=== PATIENT | female | born 1955 | race Caucasian/White ===

== ENCOUNTER 2023-04-11 09:14 | Outpatient (OUT) | payer MEDICARE, OTHER, SELFPAY ==
[2023-04-11 09:43] LABS: Basophils Absolute Auto 0.1 10^3/uL (0.0-0.1); Basophils Percent Auto 0.9 % (0.2-2.0); Eosinophils Absolute Auto 0.1 10^3/uL (0.0-0.7); Eosinophils Percent Auto 2.6 % (0.9-7.0); Hematocrit 42.4 % (36.0-48.0); Hemoglobin 14.1 g/dL (12.0-16.0); Immature Granulocytes Abs Auto 0.01 10^3/uL (0.00-0.03); Immature Granulocytes Pct Auto 0.2 % (0.0-0.5); Lymphocytes Absolute Auto 1.7 10^3/uL (1.2-3.8); Lymphocytes Percent Auto 31.2 % (20.5-60.0); Mean Corpuscular HGB Conc 33.3 g/dL (29.9-35.2); Mean Corpuscular Hemoglobin 29.6 pg (26.7-34.0); Mean Corpuscular Volume 88.9 fL (81.0-99.0); Mean Platelet Volume 9.2 fL (9.5-13.5); Monocytes Absolute Auto 0.4 10^3/uL (0.3-0.8); Monocytes Percent Auto 7.4 % (1.7-12.0); Neutrophils Absolute Auto 3.1 10^3/uL (1.4-6.5); Neutrophils Percent Auto 57.7 % (43.0-75.0); Platelet Count 212 10^3/uL (150-450); Red Blood Count 4.77 10^6/uL (4.20-5.40); Red Cell Distribution Width 14.2 % (11.0-15.0); White Blood Count 5.4 10^3/uL (4.0-11.0)
[2023-04-11 09:53] LABS: Anion Gap 12.2; BUN Creatinine Ratio 16.7; Calcium 9.9 mg/dL (8.5-10.1); Chloride 108 mmol/L (98-107); Estimated GFR (African America >60 (>=60); Estimated GFR (Non-African Ame 54 (>=60); Glucose 111 mg/dL (74-106); Potassium 4.2 mmol/L (3.5-5.1); Sodium 142 mmol/L (136-145)
== END 2023-04-11 09:15 | disposition home or self-care (01) ==
PROVIDERS: PCP Nurse Practitioner Family; Visit Provider Nurse Practitioner
DX: I48.19 Other persistent atrial fibrillation (principal); I50.33 Acute on chronic diastolic (congestive) heart failure
CPT/HCPCS: 36415; 80048; 85025

== ENCOUNTER 2023-04-24 11:28 | Outpatient (OUT) | payer MEDICARE, OTHER, SELFPAY ==
--- NOTE | 2023-03-28 09:00 | RT_ITS ---
[facility] Test Date: 2023-03-28 Pat Name: Mona Yanez Department: Room: - Gender: Female Slag Expander: Bernard Quintero RRT : 1955 Requested By: [id number] Order Number: [id number] Reading MD: Ludwin Harry Interpretive Statements Pulmonary function testing was completed according to ATS criteria. Findings were considered accurate and reproducible, with exception of DLCO which did not meet ATS standards. Both pre- and post-bronchodilator values utilized for spirometry. No prior studies available for comparison. Spirometry (based on pre-bronchodilator values): -FEV1/FVC: Low normal @ 74% -FEV1: Mildly reduced @ 75% -FVC: Mildly reduced @ 78% -VUD90-20%: Reduced @ 62% -There is no significant bronchodilator response. Lung volumes by plethysmography (based on pre-bronchodilator values): -RV: Normal @ 114% -TLC: Normal @ 108% Diffusion capacity: -DLCO: Normal @ 83 when corrected for Hb 15.3g/dL Flow-volume loop: -Mild obstructive pattern Impressions: -Spirometry trends towards an obstruction pattern. Normal lung volumes and diffusion capacity. Though technically non-diagnostic, the overall study may indicate a mild-moderate obstructive process (e.g. asthma, COPD) obscured by restriction induced by the patient's morbid obesity (stated BMI 45). Clinical correlation required. Electronically Signed On 03-28-2023 13:15:29 EDT by Ludwin Harry
[2023-03-28] MEDS: ALBUTEROL SULFATE 2.5 MG/3 ML VIAL NEB IH (10:01)
== END 2023-04-24 11:29 | disposition home or self-care (01) ==
LOC: CARD 11:28
PROVIDERS: PCP Nurse Practitioner Family
DX: Z79.899 Other long term (current) drug therapy (principal)
CPT/HCPCS: 94060; 94726; 94729

== ENCOUNTER 2023-08-07 08:36 | Outpatient (OUT) | payer MEDICARE, OTHER, SELFPAY ==
[2023-08-07 08:53] LABS: Basophils Absolute Auto 0.1 10^3/uL (0.0-0.1); Basophils Percent Auto 0.9 % (0.2-2.0); Eosinophils Absolute Auto 0.1 10^3/uL (0.0-0.7); Eosinophils Percent Auto 1.9 % (0.9-7.0); Hematocrit 43.3 % (36.0-48.0); Hemoglobin 14.4 g/dL (12.0-16.0); Immature Granulocytes Abs Auto 0.01 10^3/uL (0.00-0.03); Immature Granulocytes Pct Auto 0.2 % (0.0-0.5); Lymphocytes Absolute Auto 1.9 10^3/uL (1.2-3.8); Lymphocytes Percent Auto 33.8 % (20.5-60.0); Mean Corpuscular HGB Conc 33.3 g/dL (29.9-35.2); Mean Corpuscular Hemoglobin 30.4 pg (26.7-34.0); Mean Corpuscular Volume 91.4 fL (81.0-99.0); Mean Platelet Volume 9.4 fL (9.5-13.5); Monocytes Absolute Auto 0.5 10^3/uL (0.3-0.8); Monocytes Percent Auto 8.4 % (1.7-12.0); Neutrophils Absolute Auto 3.2 10^3/uL (1.4-6.5); Neutrophils Percent Auto 54.8 % (43.0-75.0); Platelet Count 180 10^3/uL (150-450); Red Blood Count 4.74 10^6/uL (4.20-5.40); Red Cell Distribution Width 12.4 % (11.0-15.0); White Blood Count 5.7 10^3/uL (4.0-11.0)
[2023-08-07 09:06] LABS: Prothrombin Time 10.6 sec (9.0-11.6)
[2023-08-07 09:20] LABS: Anion Gap 8.3; BUN Creatinine Ratio 16.8; Calcium 9.5 mg/dL (8.5-10.1); Carbon Dioxide 28.9 mmol/L (21.0-32.0); Chloride 107 mmol/L (98-107); Estimated GFR (African America >60 (>=60); Estimated GFR (Non-African Ame 59 (>=60); Glucose 102 mg/dL (74-106); Potassium 4.2 mmol/L (3.5-5.1); Sodium 140 mmol/L (136-145)
== END 2023-08-07 08:37 | disposition home or self-care (01) ==
LOC: LAB 08:40
PROVIDERS: PCP Nurse Practitioner Family; Visit Provider Nurse Practitioner
DX: I50.33 Acute on chronic diastolic (congestive) heart failure (principal); I48.19 Other persistent atrial fibrillation
CPT/HCPCS: 36415; 80048; 85025; 85610

== ENCOUNTER 2023-12-13 08:43 | Outpatient (OUT) | payer MEDICARE, OTHER, SELFPAY ==
--- OUTSIDE RECORDS SUMMARY | 2023-12-13 08:57 | XMS_ITS | CCD ---
Author Name Unknown Address [address] [place] [address] Organization [facility] Care Team Providers Care Cement Car Dumper Name Role Phone LOC CONNIE Admitting Unavailable SHRUTHI, GARCÍA Primary Care Unavailable BARAZI, CONNIE Attending Unavailable SHRUTHI, GARCÍA Attending Unavailable SHRUTHI, GARCÍA Primary Care Unavailable SHRUTHI, GARCÍA Admitting Unavailable REINECK, DR ZAFAR Sánchez Attending Unavailabl e REINECK, DR ZAFAR Sánchez Consulting Unavailabl e REINECK, DR ZAFAR Sánchez Admitting Unavailabl e MISC, DR RICHMOND Primary Care Unavailable Gonzalez, Rolan Consulting Unavailable HOY ., DR FERNANDEZ Attending Unavailable HOY ., DR FERNANDEZ Consulting Unavailable HOY ., DR FERNANDEZ Admitting Unavailable MISC, DR RICHMOND Primary Care Unavailable ZIEBER, DR LIZETT aClle Consulting Unavailable PAY ., DR ANDRES Consulting Unavailable ELIO, YESI Consulting Unavailable SHRUTHI, GARCÍA Primary Care Unavailable BARAZI, CONNIE Attending Unavailable BARAZI, CONNIE Consulting Unavailable BARAZI, CONNIE Admitting Unavailable BARAZI, CONNIE Attending Unavailable BARAZI, CONNIE Attending Unavailable BARAZI, CONNIE Attending Unavailable BARAZI, CONNIE Attending Unavailable BARAZI, CONNIE Attending Unavailable JIL, FAHAD Referring Unavailable JIL, FAHAD Referring Unavailable JIL, FAHAD Admitting Unavailable JIL, FAHAD Attending Unavailable JIL, FAHAD Referring Unavailable JIL, FAHAD Admitting Unavailable JIL, FAHAD Attending Unavailable JIL, FAHAD Referring Unavailable JIL, FAHAD Attending Unavailable JIL, FAHAD Referring Unavailable JIL, FAHAD Referring Unavailable BARAZI, CONNIE Referring Unavailable Problems Problem Classification Problem Date Documented Da te Episodic/Chronic Cardiac dysrhythmias (7 sources) Unspecified atrial fibrillation; Translations: [Paroxysmal atrial fibrillation] Onset: 02-08-2023 Chronic Conditions associated with dizziness or vertigo (8 sources) Dizziness and giddiness; Translations: [Unspecified disorder of vestibular function, unspecified ear] Onset: 02-24-2023 Episodic Congestive heart failure; nonhypertensive (6 sources) Acute on chronic diastolic (congestive) heart failure; Translations: [ACUTE ON CHRONIC DIASTOLIC CHF] Onset: 02-22-2023 Chronic Diabetes mellitus without complication (1 source) Hyperglycemia, unspecified; Translations: [HYPERGLYCEMIA UNSPECIFIED] Onset: 02-13-2023 Episodic Essential hypertension (1 source) Essential (primary) hypertension; Translations: [ESSENTIAL PRIMARY HYPERTENSION] Onset: 02-13-2023 Chronic Other aftercare (1 source) Other long-term (current) drug therapy; Translations: [OTH CUSTODIAL CURRENT DRUG THERAPY] Onset: 02-25-2023 Episodic Other circulatory disease (2 sources) Personal history of other diseases of the circulatory system; Translations: [Personal history of other diseases of the circulatory system] Onset: 08-14-2023 Episodic Other lower respiratory disease (1 source) Shortness of breath; Translations: [SHORTNESS OF BREATH] Onset: 02-13-2023 Episodic Other nutritional; endocrine; and metabolic disorders (1 source) Hypocalcemia; Translations: [HYPOCALCEMIA] Onset: 02-13-2023 Chronic Other screening for suspected conditions (not mental disorders or infectious disease) (1 source) Other specified abnormal findings of blood chemistry; Translations: [OT SPEC ABNORMAL FINDINGS BLD CHEM] Onset: 02-13-2023 Episodic Pulmonary heart disease (1 source) Other pulmonary embolism without acute cor pulmonale; Translations: [OT PULM EMBO W/O AC COR PULMONALE] Onset: 02-13-2023 Episodic Residual codes; unclassified (2 sources) Other specified postprocedural states; Translations: [Other specified postprocedural states] Onset: 08-14-2023 Episodic Unclassified (3 sources) Other persistent atrial fibrillation; Translations: [OTHR PERSISTENT ATRIAL FIBRILLATION] Onset: 03-04-2023 Results Test Name Value Interpretation Reference Range Facility Follow-Upon 10-29-2023 Follow-Up [id number] Mona Yanez 1955 F Date Provider Department Center 10/29/2023 Sree-CONNIE MONTERROSO [facility] No family history on file Level of Service:79061 [place] OFFICE/OUTPATIENT ESTABLISHED MOD MDM 30 MIN [facility] Telephoneon 08-26-2023 Telephone [id number] Mona Yanez 1955 F Date Provider Department Center 08/26/2023 TYRONE MARSHALL [facility] No family history on file [facility] HPon 08-14-2023 HP - Attestation signed by Fahad García MD at 08/14/2023 9:02 AM By using the attestations below, the signing clinician agrees that I have read and verify that the documentation has been personally reviewed by me and ensure that the documentation accurately reflects the encounter. GC: I personally saw this patient on the day of the encounter, performed the aranda portion(s) of the service and participated in the management and confirm the resident's documentation. Please note there may be an additional personal documentation from me. Afib ablation would require placement of multiple catheters in the heart under moderate sedation which will include diagnostic catheters, ICE catheters and ablation catheters. The risk of the procedures can be described as minor and major minor complications being discomfort in the groin area, bleeding, infection and vascular complications at this fistula formation, pseudoaneurysm, nerve injury. Major complications would include catheter induced cardiac perforation leading to tamponade/ pericardial effusion which may or may not require surgical intervention. Other complications are phrenic nerve injury leading to paralysis, thromboembolism including pulmonary and systemic event leading to stroke or endorgan injury or . There could be a possibility of catheter induced valve entrapment which may require surgical intervention and valve replacement. Given that these procedures are performed under x-ray, they could be acute or long-term side effects from radiation. Gven the comorbidities, the likelihood of attaining sinus rhythm would be ~75% and reiterated the importance of weight loss and an exercise regimen as well as treatment of sleep apnea which would be beneficial in long-term maintenance of sinus rhythm based on data from LEGACY and CARDIOFIT trials. Overall the risk of these complications ranged anywhere from 1-5%. Patient verbalized understanding and have agreed to proceed with the procedure. History Of Present Illness Reason for visit: afib, s/p DCCV unsuccessful on amiodarone , afib ablation hp and consent 08/02/23: Patient here for afib ablation HP and consent She has failed trialing AAD with DCCV and still remains in AF She is symptomatic of it with complaints of fatigue, SOB, LE edema PMH: HTN, HFpEF, afib 06/04/23 Pt feels better after increasing BB dose and rate is controlled. Holter reveals episodes of VR in 120s with activity. She is on AC. Holter from 05/22/2023 to 05/24/2023 for evaluating the ventricular rate showed Ventricular rate was 163 bpm as noted on 05/23/2023 at 8:10 AM the minimum recorded was 52 beats a minute with an average rate of 88 bpm she was noted to be in Chronic atrial fibrillation throughout this monitoring. during daytime her ventricular rate was noted to range between 75 to-125bpm for the most part. HPI: Mona Yanez is a 68 y.o. year old with past medical history of A-fib with history of cardioversion, hypertension. She used to be seen in [place] where she used to live for [employer] had a cardioversion in the past about 3 years ago and has not had issues since. She was taken off blood thinners at the time and was not on any antiarrhythmic medication. She was recently seen in [place] ER 02/08/2023 with symptoms of A-fib -she had felt SOB and felt like heart was racing and was concerned she was in A-fib. No cardioversion was attempted due to not being on blood thinners. [place] started her on Cardizem and Eliquis , And hydralazine for hypertension. In the ER visit note she had noted swelling in her arms and legs which have resolved. she had a CT of her chest she was noted to have, Cardiomegaly with biatrial dilatation, acute bilateral pulmonary emboliwith left worse than right, with overall clot burden being considered large, moderate cardiomegaly with significant biatrial dilatation and RV dysfunction and dilatation. She had no echo performed to evaluate for right heart strain. She is fairly asymptomatic but when she is trying to exercise her work-up was taking twice as long. Otherwise she is able to go about her day without concern for shortness of breath, palpitations. She is s/p DCCV on 04/17/23 but failed to convert. Dyspnea continues to improve in regards to PE but she does got dyspneic when she feels her HR elevate she had echocardiogram done which showed function and chamber size, moderate concentric LVH, moderate to severe LA dilatation, mild dilatation of RA and RV, RVSP 29, moderate mitral regurgitation It was recommended post cardioversion to assess for RVR with holter and discussed with patient, she feels her rate heart racing on exertion when she exercises and does get MONREAL / fatigue and opted no holter. she denies chest pain, worseni (more content not included)... [facility] NURSNOTEon 08-14-2023 NURSNOTE Discharge instructions reviewed with patient daughter at bedside. All questions answered at this time Melida Hanna PRODUCT FINISHER [facility] NURSNOTE Prescriptions given to family member to fill at local pharmacy Melida Hanna PRODUCT FINISHER [facility] NURSNOTE EKG at bedside Melida Hanna PRODUCT FINISHER [facility] POCT GLUCOSE METER UNSOLICIT ED RESULTSon 08-14-2023 Glucose [Mass/Vol] 110 mg/dL High 70-105 [facility] Comment on above: Order Comment: Waive d Testing in the ED is performed under the ED CLIA certificate #[id number]. Result Comment: ngro edward Performed By: #### L [id number] ####[facility] (BEAKER)[address] [facility] [place] [address] PROTIME-INRon 08-14-2023 INR IN PPP BY COAGULATION ASSAY 0.99 Normal 0.90-1.10 [facility] Comment on above: Result Comment: ACCC P RECOMMENDED INR FOR WARFARIN THERAPY CONDITION INR PROPHYLAXIS OF VENOUS THROMBOSIS 2-3 (HIGH-RISK SURGERY) TREATMENT OF VENOUS THROMBOSIS 2-3 TREATMENT OF PULMONARY EMBOLISM 2-3 PREVENTION OF SYSTEMIC EMBOLISM: 2-3 ACUTE MYOCARDIAL INFARCTION TISSUE HEART VALVES VALVULAR HEART DISEASE ATRIAL FIBRILLATION RECURRENT SYSTEMIC EMBOLISM MECHANICAL HEART VALVE 2.5-3.5 FROM: ORAL ANTICOAGULANTS. MECHANISM OF ACTION, CLINICAL EFFECTIVENESS, AND OPTIMAL THERAPEUTIC RANGE. CHEST 1995;108:231S-246S. Performed By: #### L [id number] ####[facility] LAB (BEAKER)[address] [place] [address] PROTHROMBIN TIME (PT) IN PPP BY COAGULATION ASSAY 13.1 Seconds Normal 12.3-14.8 [facility] Comment on above: Performed By: #### L [id number] ####[facility] LAB (BEAKER)[address] [place] [address] [id number] 08-05-2023 [id number] ARRIVAL TIME GIVEN 0700 HOLD ELIQUIS X 48 HRS STOP 08/12 MEDICATIONS TO TAKE DAY OF SURGERY WITH SIP OF WATER METOPROLOL PT AGREES TO HAVE LABS DRAWN AT [facility] ORDERS FAXED IF YOU ARE GOING HOME AFTER YOUR SURGERY OR PROCEDURE, FOR YOUR SAFETY, YOUR SURGERY WILL BE CANCELLED IF BOTH OF THE FOLLOWING ARE NOT AVAILABLE: An adult entry level truck driver over the age of 18, that can receive information about your care after surgery, and drive you home. A responsible adult to stay with you for 24 hours in case of an emergency. Can be same as above. The highest risk of complications is within the first 24 hours after sedation/anesthesia. Nothing to eat or drink after midnight the night before surgery. This includes gum, candy, mints, and lozenges. No alcohol, marijuana, or tobacco products including vaping for 24 hours. Please brush your teeth; don't swallow the toothpaste or water. If you use dentures, wear them but do not use paste. Please leave any other removable dental hardware at home. Do not put in contact lenses. Do not wear perfume, make-up, nail upper sorbian, or lotions on the day of your surgery or procedure. Follow skin-prep/wipe instructions as below if required. Bring with you: *Insurance card *Photo ID *Medication list *Co-pay for visit/prescriptions If applicable: *Rescue inhalers *Green bracelet from lab *CPAP or BiPAP machine, if staying overnight *Any braces, splints, or equipment ordered preoperatively *Remote controls for implanted devices Leave at home: *Purse/Wallet/Florez- unless needed for co-pay *Cell phone (can leave with family/friend or place in locker if needed) *Jewelry (including piercings and wedding bands) *If not possible, ask the person who is waiting with you to keep them Children under the age of 12 will not be allowed into patient care areas. We will call you between 3pm and 4pm the day before your surgery to give you an arrival time. If you do not receive this call, have any questions, or need to make any changes, please call [phone]. Notify your surgeon if you develop any illness such as a cold, cough, fever, sore throat or vomiting between now and your surgery. Thank you for entrusting us with your care. [facility] Surgical Services Team [facility] Office Visiton 08-02-2023 Follow-up visit [id number] Mona Yanez 1955 F Date Provider Department Center 08/02/2023 CONNIE DOYLE JESUS [place] [facility] No family history on file Level of Service:56793 [place] OFFICE/OUTPATIENT ESTABLISHED HIGH MDM 40-54 MIN [facility] Orders Onlyon 07-05-2023 Orders Only [id number] Mona Yanez 1955 F Date Provider Department [place] 07/05/2023 CONNIE DOYLE [facility] No family history on file [facility] Orders Onlyon 07-03-2023 Orders Only [id number] Mona Yanez 1955 Provider Department [place] 07/03/2023 [id number]-EOBOJAS [facility] No family history on file [facility] Telemedicineon 2023 Telemedicine [id number] Mona Yanez 1955 Provider Department [place] 2023 Inna-FAHAD GARCÍA CARD [facility] No family history on file Level of Service:22260 [place] PHYS/QHP TELEPHONE EVALUATION 21-30 MIN [facility] Office Visiton 05-22-2023 Follow-up visit [id number] Mona Yanez 1955 [facility] Department [place] 05/22/2023 CONNIE DOYLE CARD [facility] No family history on file Level of Service:23505 [place] OFFICE/OUTPATIENT ESTABLISHED MOD MDM 30-39 MIN Reason for Visit and Comments: Follow-up [[id number]] [facility] Orders Onlyon 05-22-2023 Orders Only [id number] Mona Yanez 1955 Provider Department [place] 05/22/2023 CARLEY DIAS CARD [facility] No family history on file [facility] ANEDonald 04-17-2023 ANES - Attestation signed by Fahad García MD at 04/24/2023 9:13 AM By using the attestations below, the signing clinician agrees that I have read and verify that the documentation has been personally reviewed by me and ensure that the documentation accurately reflects the encounter. GC: I personally saw this patient on the day of the encounter, performed the aranda portion(s) of the service and participated in the management and confirm the resident's documentation. Please note there may be an additional personal documentation from me. Patient: Mona Yanez Procedure Information Date/Time: 04/17/23 1340 Procedure: Cardioversion - BECCA with DCCV Location: [facility] STEAM TRAP MAN HOLDING ROOM / [facility] (Cath) Providers: Fahad García MD Clinical information reviewed: Allergies Meds OB Status Physical Exam Airway Mallampati: II TM distance: >3 FB Neck ROM: full Cardiovascular Rhythm: irregular (-) murmur Dental Pulmonary Abdominal Anesthesia Plan other (Conscious sedation. ) Additional Equipment Requests [facility] HPon 04-17-2023 - Attestation signed by Fahad García MD at 04/24/2023 9:14 AM By using the attestations below, the signing clinician agrees that I have read and verify that the documentation has been personally reviewed by me and ensure that the documentation accurately reflects the encounter. GC: I personally saw this patient on the day of the encounter, performed the aranda portion(s) of the service and participated in the management and confirm the resident's documentation. Please note there may be an additional personal documentation from me. History Of Present Illness Mona Yanez is a 67 y.o. female presenting for cardioversion. past medical history of A-fib with history of cardioversion, hypertension. She used to be seen in [place] where she used to live for A-fib had a cardioversion in the past about 3 years ago and has not had issues since. She was taken off blood thinners at the time and was not on any antiarrhythmic medication. She was recently seen in [place] ER 02/08/2023 with symptoms of A-fib -she had felt SOB and felt like heart was racing and was concerned she was in A-fib. No cardioversion was attempted due to not being on blood thinners. [place] started her on Cardizem and Eliquis , hydralazine for hypertension. In the ER visit note she had noted swelling in her arms and legs which have resolved. she had a CT of her chest she was noted to have, Cardiomegaly with biatrial dilatation, acute bilateral pulmonary emboli with left worse than right, with overall clot burden being considered large, moderate cardiomegaly with significant biatrial dilatation and RV dysfunction and dilatation. She had no echo performed to evaluate for right heart strain. Past Medical History She has a past medical history of Abnormal ECG and Hypertension. Surgical History She has no past surgical history on file. Social History She reports that she has never smoked. She has never used smokeless tobacco. No history on file for alcohol use and drug use. Allergies Patient has no known allergies. Medications Medications Prior to Admission Medication Sig Dispense Refill Last Dose amiodarone (Pacerone) 200 mg tablet Take 1 tablet (200 mg) by mouth in the morning. Do not start before March 20, 2023. 30 tablet 5 04/17/2023 dilTIAZem CD (Cardizem CD) 300 mg 24 hr capsule Take 300 mg by mouth in the morning. 04/17/2023 Eliquis 5 mg tablet Take 1 tablet (5 mg) by mouth in the morning and at bedtime. 180 tablet 3 04/17/2023 furosemide (Lasix) 20 mg tablet Take 1 tablet (20 mg) by mouth in the morning. (Patient taking differently: Take 20 mg by mouth in the morning and at bedtime.) 30 tablet 11 04/16/2023 hydrALAZINE (Apresoline) 50 mg tablet Take 50 mg by mouth in the morning and at bedtime. 04/17/2023 lisinopril 40 mg tablet Take 40 mg by mouth in the morning. 04/17/2023 amiodarone (Pacerone) 200 mg tablet Take 2 tablets (400 mg) by mouth in the morning and at bedtime for 14 days, THEN 1 tablet (200 mg) in the morning for 21 days. 77 tablet 0 Review of Systems Constitutional: Negative for activity change. Respiratory: Negative for shortness of breath. Cardiovascular: Positive for leg swelling. Negative for chest pain and palpitations. Physical Exam Cardiovascular: Rate and Rhythm: Normal rate. Rhythm irregular. Pulses: Normal pulses. Heart sounds: Normal heart sounds. Musculoskeletal: Cervical back: Normal range of motion. Neurological: General: No focal deficit present. Mental Status: She is alert. Last Recorded Vitals There were no vitals taken for this visit. Assessment/Plan Persistent atrial fibrillation - [id number] 5 for age, gender, hypertension, PE - continue Eliquis 5 mg twice daily - continue Cardizem 300 mg daily - will proceed with cardioversion. She has been on eliquis for 2 months. chronic heart failure with preserved ejection fraction - EF normal - continue GDMT: Lisinopril 40 mg daily, Lasix 20 mg daily. History of Multiple subsegmental pulmonary emboli continue Eliquis 5 mg twice daily [facility] NURSNOTEon 04-17-2023 NURSNOTE RN educated pt on d/ c instructions. RN encouraged pt to voice any questions or concerns. Pt verbalizes no questions or concerns at this time. Pt was wheeled off of unit with all of belongings. [facility] ECHOCARDIO M/2D COMPLETEon 0 03-05-2023 ECHOCARDIO M/2D COMPLETE Patient: MONA YANEZ Exam Date: 03/05/2023 : 1955 Gender:F Ordering : CONNIE MONTERROSO Admission #: [id number] Family : Order #: [id number] CLICK HERE TO VIEW EXAM ECHOCARDIOGRAM REPORT PROCEDURE: CARDIO PULMONARY ECHOCARDIO M/2D COMP INDICATIONS: Acute on chronic CHF, Persistent Afib COMPARISON: None. DESCRIPTION: COMPLETE ECHOCARDIOGRAM Real-time transthoracic echocardiography with 2D, M-mode, spectral and color flow Doppler performed. QUALITY: Technical quality was good. LEFT VENTRICLE: Normal chamber size. Moderate concentric left ventricular hypertrophy. Systolic function is at the lower limits of normal. LV EF: Lower limits of normal left ventricular ejection fraction, (50-55%). DIASTOLIC: Not adequately assessed due to heart rhythm. ATRIAL SEPTUM: LEFT ATRIUM: Moderate to severe dilatation. RIGHT ATRIUM: Moderate dilatation. RIGHT VENTRICLE: Mild dilatation. Normal right ventricular systolic function. TRICUSPID VALVE: Normal mobility and thickness. No stenosis with trivial regurgitation. No evidence of pulmonary hypertension. RVSP 29 mmHg MITRAL VALVE: Normal mobility and thickness. No evidence of mitral valve stenosis. There is no mitral annular calcification. Moderate mitral regurgitation. AORTIC VALVE: Normal trileaflet appearance. No visible sclerosis. Normal leaflet mobility. No evidence of aortic valve stenosis. No aortic regurgitation. AORTIC ROOT: Normal diameter and appearance. PULMONIC VALVE: Normal thickness and mobility. No stenosis. Trivial regurgitation. PERICARDIUM: No evidence of pericardial effusion. IVC: Collapses with inspirations. Normal size. PLEURA: CONCLUSION: 1. Moderate concentric left ventricular hypertrophy with low normal systolic function. LVEF is 50 to 55%. 2. Moderate mitral regurgitation. 3. Moderate to severe left atrial dilatation. 4. Normal right-sided pressures. Adult Echocardiography Procedure Report Left Ventricle Left Atrium LA Volume Index (2D A2C): 91.80 ml, 91.80 ml Mitral Valve Right Ventricle Aorta Aortic Valve AoV Area (Peak Aniceto): 1.58 cm2, 1.58 cm2 AoV Area (VTI): 1.64 cm2, 1.64 cm2 Tricuspid Valve Pulmonic Valve Peak Velocity: 0.73 m/s, 0.82 m/s Peak Gradient: 2.41 mm[Hg] Right Atrium Dictated by: Asif Connelly M.D. on 03/05/2023 at 17:38 Approved by: Asif Connelly M.D. on 03/05/2023 at 17:41 [facility] Office Visiton 03-05-2023 Follow-up visit [id number] Mona Yanez 1955 F Date Provider Department Center 03/05/2023 1596-CONNIE MONTERROSO [facility] No family history on file Level of Service:05854 [place] OFFICE/OUTPATIENT ESTABLISHED MOD MDM 30-39 MIN Reason for Visit and Comments: Atrial Fibrillation [80] Congestive Heart Failure [127] [facility] PROF CHEM 8 (BAS METB)on Anion gap [Moles/Vol] 12.2 mmol/L [facility] Comment on above: Performed By: #### D DIM, PT, PTT #### [facility] [address] [address] [address] Balwinder Ramirez Calcium [Mass/Vol] 10.6 mg/dL Critically high 8.5-10.1 [facility] Comment on above: Performed By: #### D DIM, PT, PTT #### [facility] [address] [address] [address] Balwinder Ramirez Chloride [Moles/Vol] 107 mmol/L Normal 98-107 [facility] Comment on above: Performed By: #### D DIM, PT, PTT #### [facility] [address] [address] [address] Balwinder Ramirez CO2 [Moles/Vol] 28.4 mmol/L Normal 21.0-32.0 [facility] Comment on above: Performed By: #### D DIM, PT, PTT #### [facility] [address] [address] [address] Balwinder Ramirez Creatinine [Mass/Vol] 1.06 mg/dL Critically high 0.55-1.02 [facility] Comment on above: Performed By: #### D DIM, PT, PTT #### [facility] [address] [address] [address] Balwinder Ramirez EGFR-AF YEMENI >60 Normal >=60 [facility] Comment on above: Performed By: #### D DIM, PT, PTT #### [facility] [address] [address] [address] Balwinder Ramirez EGFR-NON AF YEMENI 52 mL/min/1.73m2 Critically low >=60 [facility] Comment on above: Performed By: #### D DIM, PT, PTT #### [facility] [address] [address] [address] Balwinder Ramirez Glucose [Mass/Vol] 115 mg/dL Critically high 74-106 [facility] Comment on above: Performed By: #### D DIM, PT, PTT #### [facility] [address] [address] [address] Balwinder Ramirez Potassium [Moles/Vol] 4.6 mmol/L Normal 3.5-5.1 [facility] Comment on above: Performed By: #### D DIM, PT, PTT #### [facility] [address] [place] [address] Dr. Balwinder Ramirez Sodium [Moles/Vol] 143 mmol/L Normal 136-145 [facility] Comment on above: Performed By: #### D DIM, PT, PTT #### [facility] [address] [place] [address] Dr. Balwinder Ramirez Urea nitrogen [Mass/Vol] 18.0 mg/dL Normal 7.0-18.0 [facility] Comment on above: Performed By: #### D DIM, PT, PTT #### [facility] [address] [place] [address] Dr. Balwinder Ramirez Urea nitrogen/Creatinine [Mass ratio] 17.0 mg/mg Normal [facility] Comment on above: Performed By: #### D DIM, PT, PTT #### [facility] [address] [place] [address] HEAD WO CONon 02-24-2023 CT HEAD WO CON TITLE: CT HEAD WO CON COMPARISON: None. CLINICAL HISTORY: Headache. Dizziness. Nausea. Vomiting TECHNIQUE: 3 mm axial images without contrast. Automated exposure control was utilized. Dose reduction techniques were achieved by using automated exposure control and/or adjustment of mA and/or kV according to patient size and/or use of iterative reconstruction technique. FINDINGS: There is no mass, mass effect, parenchymal hemorrhage, nor subarachnoid hemorrhage. The extra-axial and extracranial structures appear normal. The CSF spaces are unremarkable. The skeletal structures are intact. IMPRESSION: NO ACUTE INTRACRANIAL FINDINGS BY CT HEAD WITHOUT CONTRAST Electronically authenticated by: ROLAN GONZALEZ Date: 2023-02-24 13:22 Normal [facility] Office Visiton 02-22-2023 Follow-up visit [id number] Mona Yanez 1955 F Date Provider Department Center 02/22/2023 CONNIE DOYLE CARD [facility] No family history on file Level of Service:31948 [place] OFFICE/OUTPATIENT NEW MODERATE MDM 45-59 MINUTES Reason for Visit and Comments: Atrial Fibrillation [80] Establish Care [42] Normal [facility] CBC AUTO DIFFon 02-09-2023 BASO # 0.1 103/ul Normal 0.0-0.1 [facility] Comment on above: Performed By: #### D DIM, PT, PTT #### [facility] [address] [place] [address] Dr. Balwinder Ramirez Basophils/100 WBC (Bld) 0.6 % Normal 0.2-2.0 [facility] Comment on above: Performed By: #### D DIM, PT, PTT #### [facility] [address] [place] [address] Dr. Balwinder Ramirez EO # 0.1 103/ul Normal 0.0-0.7 [facility] Comment on above: Performed By: #### D DIM, PT, PTT #### [facility] [address] [address] [address] Balwinder Ramirez Eosinophils/100 WBC (Bld) 1.2 % Normal 0.9-7.0 [facility] Comment on above: Performed By: #### D DIM, PT, PTT #### [facility] [address] [place] [address] Dr. Balwinder Ramirez Erythrocyte distribution width (RBC) [Ratio] 13.8 % Normal 11.0-15.0 [facility] Comment on above: Performed By: #### D DIM, PT, PTT #### [facility] [address] [place] [address] Dr. Balwinder Ramirez Hematocrit (Bld) [Volume fraction] 46.6 % Normal 36.0-48.0 [facility] Comment on above: Performed By: #### D DIM, PT, PTT #### [facility] [address] [place] [address] Dr. Balwinder Ramirez Hemoglobin (Bld) [Mass/Vol] 15.3 g/dL Normal 12.0-16.0 [facility] Comment on above: Performed By: #### D DIM, PT, PTT #### [facility] [address] [address] [address] Balwinder Ramirez IG # 0.03 10e3/ul Normal 0.00-0.03 [facility] Comment on above: Performed By: #### D DIM, PT, PTT #### [facility] [address] [address] [address] Balwinder Ramirez IG % 0.3 % Normal 0.0-0.5 [facility] Comment on above: Performed By: #### D DIM, PT, PTT #### [facility] [address] [address] [address] Balwinder Ramirez LYMPH # 1.9 103/ul Normal 1.2-3.8 [facility] Comment on above: Performed By: #### D DIM, PT, PTT #### [facility] [address] [address] [address] Balwinder Ramirez Lymphocytes/100 WBC (Bld) 18.0 % Critically low 20.5-60.0 [facility] Comment on above: Performed By: #### D DIM, PT, PTT #### [facility] [address] [place] [address] Dr. Balwinder Ramirez MANUAL DIFF REQ NO Normal [facility] Comment on above: Performed By: #### D DIM, PT, PTT #### [facility] [address] [address] [address] Balwinder Ramirez MCH (RBC) [Entitic mass] 28.7 pg Normal 26.7-34.0 [facility] Comment on above: Performed By: #### D DIM, PT, PTT #### [facility] [address] [address] [address] Balwinder Ramirez MCHC (RBC) [Mass/Vol] 32.8 g/dL Normal 29.9-35.2 [facility] Comment on above: Performed By: #### D DIM, PT, PTT #### [facility] [address] [place] [address] Dr. Balwinder Ramirez MCV (RBC) [Entitic vol] 87.3 fL Normal 81.0-99.0 [facility] Comment on above: Performed By: #### D DIM, PT, PTT #### [facility] [address] [place] [address] Dr. Balwinder Ramirez MONO # 0.8 103/ul Normal 0.3-0.8 [facility] Comment on above: Performed By: #### D DIM, PT, PTT #### [facility] [address] [place] [address] Dr. Balwinder Ramirez Monocytes/100 WBC (Bld) 7.5 % Normal 1.7-12.0 [facility] Comment on above: Performed By: #### D DIM, PT, PTT #### [facility] [address] [place] [address] Dr. Balwinder Ramirez NEUT # 7.8 103/ul Critically high 1.4-6.5 [facility] Comment on above: Performed By: #### D DIM, PT, PTT #### [facility] [address] [place] [address] Dr. Balwinder Ramirez Neutrophils/100 WBC (Bld) 72.4 % Normal 43.0-75.0 [facility] Comment on above: Performed By: #### D DIM, PT, PTT #### [facility] [address] [place] [address] Dr. Balwinder Ramirez Platelet mean volume (Bld) [Entitic vol] 9.6 fL Normal 9.5-13.5 [facility] Comment on above: Performed By: #### D DIM, PT, PTT #### [facility] [address] [place] [address] Dr. Balwinder Ramirez PLT 158 103/ul Normal 150-450 [facility] Comment on above: Performed By: #### D DIM, PT, PTT #### [facility] [address] [place] [address] Dr. Balwinder Ramirez RBC 5.34 106/ul Normal 4.20-5.40 [facility] Comment on above: Performed By: #### D DIM, PT, PTT #### [facility] [address] [place], [place] [id number] Dr. Balwinder Ramirez WBC 10.8 103/ul Normal 4.0-11.0 [facility] Comment on above: Performed By: #### D DIM, PT, PTT #### [facility] [address] [place] [address] Dr. Balwinder Ramirez PROF 14(COMP METB)on 023 Albumin [Mass/Vol] 3.5 g/dL Normal 3.4-5.0 [facility] Comment on above: Performed By: #### D DIM, PT, PTT #### [facility] [address] [place] [address] Dr. Balwinder Ramirez Albumin/Globulin [Mass ratio] 1.2 {ratio} Normal [facility] Comment on above: Performed By: #### D DIM, PT, PTT #### [facility] [address] [place] [address] Dr. Balwinder Ramirez ALP [Catalytic activity/Vol] 117 U/L Critically high 46-116 [facility] Comment on above: Performed By: #### D DIM, PT, PTT #### [facility] [address] [place] [address] Dr. Balwinder Ramirez ALT [Catalytic activity/Vol] 19 U/L Normal 14-59 [facility] Comment on above: Performed By: #### D DIM, PT, PTT #### [facility] [address] [place] [address] Dr. Balwinder Ramirez Anion gap [Moles/Vol] 13.0 mmol/L Normal [facility] Comment on above: Performed By: #### D DIM, PT, PTT #### [facility] [address] [place] [address] Dr. Balwinder Ramirez AST [Catalytic activity/Vol] 12 U/L Critically low 15-37 [facility] Comment on above: Performed By: #### D DIM, PT, PTT #### [facility] [address] [place] [address] Dr. Balwinder Ramirez Bilirubin [Mass/Vol] 0.9 mg/dL Normal 0.2-1.0 [facility] Comment on above: Performed By: #### D DIM, PT, PTT #### [facility] [address] [address] [address] Balwinder Ramirez Calcium [Mass/Vol] 9.5 mg/dL Normal 8.5-10.1 [facility] Comment on above: Performed By: #### D DIM, PT, PTT #### [facility] [address] [address] [address] Balwinder Ramirez Chloride [Moles/Vol] 108 mmol/L Critically high 98-107 [facility] Comment on above: Performed By: #### D DIM, PT, PTT #### [facility] [address] [place] [address] Dr. Balwinder Ramirez CO2 [Moles/Vol] 23.9 mmol/L Normal 21.0-32.0 [facility] Comment on above: Performed By: #### D DIM, PT, PTT #### [facility] [address] [place] [address] Dr. Balwinder Ramirez Creatinine [Mass/Vol] 0.76 mg/dL Normal 0.55-1.02 [facility] Comment on above: Performed By: #### D DIM, PT, PTT #### [facility] [address] [place] [address] Dr. Balwinder Ramirez EGFR-AF YEMENI >60 Normal >=60 [facility] Comment on above: Performed By: #### D DIM, PT, PTT #### [facility] [address] [place] [address] Dr. Balwinder Ramirez EGFR-NON AF YEMENI >60 Normal >=60 [facility] Comment on above: Performed By: #### D DIM, PT, PTT #### [facility] [address] [place] [address] Dr. Balwinder Ramirez Globulin (S) [Mass/Vol] 2.9 g/dL Normal [facility] Comment on above: Performed By: #### D DIM, PT, PTT #### [facility] [address] [place] [address] Dr. Balwinder Ramirez Glucose [Mass/Vol] 128 mg/dL Critically high 74-106 [facility] Comment on above: Performed By: #### D DIM, PT, PTT #### [facility] [address] [place] [address] Dr. Balwinder Ramirez Potassium [Moles/Vol] 3.9 mmol/L Normal 3.5-5.1 [facility] Comment on above: Performed By: #### D DIM, PT, PTT #### [facility] [address] [place] [address] Dr. Balwinder Ramirez Protein [Mass/Vol] 6.4 g/dL Normal 6.4-8.2 [facility] Comment on above: Performed By: #### D DIM, PT, PTT #### [facility] [address] [place] [address] Dr. Balwinder Ramirez Sodium [Moles/Vol] 141 mmol/L Normal 136-145 [facility] Comment on above: Performed By: #### D DIM, PT, PTT #### [facility] [address] [place] [address] Dr. Balwinder Ramirez Urea nitrogen [Mass/Vol] 16.0 mg/dL Normal 7.0-18.0 [facility] Comment on above: Performed By: #### D DIM, PT, PTT #### [facility] [address] [place] [address] Dr. Balwinder Ramirez Urea nitrogen/Creatinine [Mass ratio] 21.1 mg/mg Normal [facility] Comment on above: Performed By: #### D DIM, PT, PTT #### [facility] [address] [place] [address] Dr. Balwinder Ramirez BNPon 02-08-2023 Natriuretic peptide B (Bld) [Mass/Vol] 637.0 pg/mL Normal <=900.0 [facility] Comment on above: Performed By: #### L IPA, TSH, CK, CMP, BNP #### [facility] [address] [place] [address] Dr. Balwinder Ramirez CBC AUTO DIFFon 02-08-2023 BASO # 0.1 103/ul Normal 0.0-0.1 [facility] Comment on above: Performed By: #### D DIM, PT, PTT #### [facility] [address] [place] [address] Dr. Balwinder Ramirez Basophils/100 WBC (Bld) 0.7 % Normal 0.2-2.0 [facility] Comment on above: Performed By: #### D DIM, PT, PTT #### [facility] [address] [place] [address] Dr. Balwinder Ramirez EO # 0.2 103/ul Normal 0.0-0.7 [facility] Comment on above: Performed By: #### D DIM, PT, PTT #### [facility] [address] [place] [address] Dr. Balwinder Ramirez Eosinophils/100 WBC (Bld) 2.1 % Normal 0.9-7.0 [facility] Comment on above: Performed By: #### D DIM, PT, PTT #### [facility] [address] [place] [address] Dr. Balwinder Ramirez Erythrocyte distribution width (RBC) [Ratio] 13.8 % Normal 11.0-15.0 [facility] Comment on above: Performed By: #### D DIM, PT, PTT #### [facility] [address] [place] [address] Dr. Balwinder Ramirez Hematocrit (Bld) [Volume fraction] 47.0 % Normal 36.0-48.0 [facility] Comment on above: Performed By: #### D DIM, PT, PTT #### [facility] [address] [place] [address] Dr. Balwinder Ramirez Hemoglobin (Bld) [Mass/Vol] 15.5 g/dL Normal 12.0-16.0 [facility] Comment on above: Performed By: #### D DIM, PT, PTT #### [facility] [address] [place] [address] Dr. Balwinder Ramirez IG # 0.02 10e3/ul Normal 0.00-0.03 [facility] Comment on above: Performed By: #### D DIM, PT, PTT #### [facility] [address] [place] [address] Dr. Balwinder Ramirez IG % 0.2 % Normal 0.0-0.5 [facility] Comment on above: Performed By: #### D DIM, PT, PTT #### [facility] [address] [place] [address] Dr. Balwinder Ramirez LYMPH # 2.4 103/ul Normal 1.2-3.8 [facility] Comment on above: Performed By: #### D DIM, PT, PTT #### [facility] [address] [place] [address] Dr. Balwinder Ramirez Lymphocytes/100 WBC (Bld) 27.1 % Normal 20.5-60.0 [facility] Comment on above: Performed By: #### D DIM, PT, PTT #### [facility] [address] [place] [address] Dr. Balwinder Ramirez MANUAL DIFF REQ NO Normal [facility] Comment on above: Performed By: #### D DIM, PT, PTT #### [facility] [address] [place] [address] Dr. Balwinder Ramirez MCH (RBC) [Entitic mass] 28.5 pg Normal 26.7-34.0 [facility] Comment on above: Performed By: #### D DIM, PT, PTT #### [facility] [address] [place] [address] Dr. Balwinder Ramirez MCHC (RBC) [Mass/Vol] 33.0 g/dL Normal 29.9-35.2 [facility] Comment on above: Performed By: #### D DIM, PT, PTT #### [facility] [address] [place] [address] Dr. Balwinder Ramirez MCV (RBC) [Entitic vol] 86.4 fL Normal 81.0-99.0 [facility] Comment on above: Performed By: #### D DIM, PT, PTT #### [facility] [address] [place] [address] Dr. Blawinder Ramirez MONO # 0.6 103/ul Normal 0.3-0.8 [facility] Comment on above: Performed By: #### D DIM, PT, PTT #### [facility] [address] [place] [address] Dr. Balwinder Ramirez Monocytes/100 WBC (Bld) 6.5 % Normal 1.7-12.0 [facility] Comment on above: Performed By: #### D DIM, PT, PTT #### [facility] [address] [place] [address] Dr. Balwinder Ramirez NEUT # 5.5 103/ul Normal 1.4-6.5 [facility] Comment on above: Performed By: #### D DIM, PT, PTT #### [facility] [address] [place] [address] Dr. Balwinder Ramirez Neutrophils/100 WBC (Bld) 63.4 % Normal 43.0-75.0 [facility] Comment on above: Performed By: #### D DIM, PT, PTT #### [facility] [address] [place] [address] Dr. Balwinder Ramirez Platelet mean volume (Bld) [Entitic vol] 9.8 fL Normal 9.5-13.5 [facility] Comment on above: Performed By: #### D DIM, PT, PTT #### [facility] [address] [place] [address] Dr. Balwinder Ramirez PLT 171 103/ul Normal 150-450 [facility] Comment on above: Performed By: #### D DIM, PT, PTT #### [facility] [address] [place] [address] Dr. Balwinder Ramirez RBC 5.44 106/ul Critically high 4.20-5.40 [facility] Comment on above: Performed By: #### D DIM, PT, PTT #### [facility] [address] [place] [address] Dr. Balwinder Ramirez WBC 8.7 103/ul Normal 4.0-11.0 [facility] Comment on above: Performed By: #### D DIM, PT, PTT #### [facility] [address] [place] [address] Dr. Balwinder Ramirez CPKon 02-08-2023 CK [Catalytic activity/Vol] 92 U/L Normal 26-192 [facility] Comment on above: Performed By: #### L IPA, TSH, CK, CMP, BNP #### [facility] [address] [address] [address] Balwinder Ramirez CTA CHEST WO W CONon 023 CTA CHEST WO W CON EXAMINATION: CTA CHEST W CON 523. HISTORY: Shortness of breath. COMPARISON: None. TECHNIQUE: CT angiography of the pulmonary arteries following the administration of intravenous contrast. Coronal and sagittal MIP (maximum intensity projection) images were performed. 3 mm sections were obtained from the thoracic inlet through the diaphragm following administration of intravenous contrast. Coronal and sagittal reconstructed images were obtained. Dose reduction techniques were achieved by using automated exposure control and/or adjustment of mA and/or kV according to patient size and/or use of iterative reconstruction technique. FINDINGS: Patient appears morbidly obese. Upper abdominal contents demonstrate no acute abnormality. Negative for aortic aneurysm or dissection. Mid ascending thoracic aortic segment has transverse diameter of 3.9 cm. Small nonenlarged noncalcified intrathoracic nodes as well as calcified subcarinal and hilar nodes are evident. Moderate cardiomegaly with biatrial dilatation noted. Examination is positive for acute bilateral pulmonary emboli. Subocclusive embolus for example is identified within the lobar pulmonary arterial branch to the right lower lobe, image #48. Occlusive emboli involving proximal and distal subsegmental pulmonary arterial branches to the left lower lobe are noted. An occlusive embolus is identified within a proximal segmental pulmonary arterial branch within the left upper lobe, seen for example on image #36. There is involvement of the segmental branches within the lingula suspected on image #43. Trace left pleural effusion noted. Mild bibasilar/supine atelectatic changes without discrete pulmonary infarct at this time. Linear discoid atelectatic/fibrotic change at the apical aspect of the right upper lobe noted. Similar change involving lower lobes is identified. Significant multilevel cervical, thoracic and upper lumbar spondylitic/facet arthritic changes, at least moderate in severity noted. There is no acute calvarial fracture. IMPRESSION: 1. Examination is positive for acute bilateral pulmonary emboli, left worse than right. Occlusive emboli are noted involving segmental/subsegmenta l pulmonary arterial branches within the left lower lobe more so than left upper lobe and lingula. There is mild involvement of the right lower lobe. Overall the clot burden is large. 2. Moderate cardiomegaly with significant biatrial dilatation. There is dilatation at the right ventricular apex suggestive of right heart dysfunction. 3. Trace left-sided pleural effusion. No discrete pulmonary infarct at this time. 4. Negative for aortic aneurysm or aortic dissection. 5. Sequela of old healed granulomatous disease. Minimal bibasilar atelectasis. No suspicious pulmonary mass. Report called to Dr. Mansfield at 5:11 PM on 02/08/2023. Electronically authenticated by: YESI BALLARD Date: 2023-02-08 17:33 Normal [facility] D-DIMERon 02-08-2023 D-DIMER 2.48 mg/L FEU Critically high <=0.59 [facility] Comment on above: Performed By: #### D DIM, PT, PTT #### [facility] [address] [address] [address] Balwinder Ramirez D-DIMER COMMENTS SEE BELOW Normal [facility] Comment on above: Result Comment: Incr eases in D-Dimer concentration observed with thromboembolic events can be variable due to localization, size, and age of the thrombus. Therefore, a thromboembolic event cannot be diagnosed with certainty on the basis of the reference range. D-Dimers may also be elevated for a variety of disorders including: advanced age, , coronary disease, cancer, liver disease, infection, inflammation, hematoma, DIC, trauma, post-surgery, diabetes, thrombolytic or anticoagulant therapy, stress, and generalized hospitalization. Performed By: #### D DIM, PT, PTT #### [facility] [address] [address] [address] Balwinder Ramirez LIPASEon 02-08-2023 Lipase [Catalytic activity/Vol] 167.0 U/L Normal 73.0-393.0 [facility] Comment on above: Performed By: #### L IPA, TSH, CK, CMP, BNP #### [facility] [address] [address] [address] Balwinder Ramirez PROF 14(COMP METB)on 023 Albumin [Mass/Vol] 3.9 g/dL Normal 3.4-5.0 [facility] Comment on above: Performed By: #### L IPA, TSH, CK, CMP, BNP #### [facility] [address] [place] [address] Dr. Balwinder Ramirez Albumin/Globulin [Mass ratio] 1.0 {ratio} Normal [facility] Comment on above: Performed By: #### L IPA, TSH, CK, CMP, BNP #### [facility] [address] [place] [address] Dr. Balwinder Ramirez ALP [Catalytic activity/Vol] 146 U/L Critically high 46-116 [facility] Comment on above: Performed By: #### L IPA, TSH, CK, CMP, BNP #### [facility] [address] [place] [address] Dr. Balwinder Ramirez ALT [Catalytic activity/Vol] 24 U/L Normal 14-59 [facility] Comment on above: Performed By: #### L IPA, TSH, CK, CMP, BNP #### [facility] [address] [place] [address] Dr. Balwinder Ramirez Anion gap [Moles/Vol] 13.3 mmol/L Normal [facility] Comment on above: Performed By: #### L IPA, TSH, CK, CMP, BNP #### [facility] [address] [place] [address] Dr. Balwinder Ramirez AST [Catalytic activity/Vol] 19 U/L Normal 15-37 [facility] Comment on above: Performed By: #### L IPA, TSH, CK, CMP, BNP #### [facility] [address] [place] [address] Dr. Balwinder Ramirez Bilirubin [Mass/Vol] 0.4 mg/dL Normal 0.2-1.0 [facility] Comment on above: Performed By: #### L IPA, TSH, CK, CMP, BNP #### [facility] [address] [place] [address] Dr. Balwinder Ramirez Calcium [Mass/Vol] 10.7 mg/dL Critically high 8.5-10.1 T [facility] Comment on above: Performed By: #### L IPA, TSH, CK, CMP, BNP #### [facility] [address] [place] [address] Dr. Balwinder Ramirez Chloride [Moles/Vol] 108 mmol/L Critically high 98-107 [facility] Comment on above: Performed By: #### L IPA, TSH, CK, CMP, BNP #### [facility] [address] [address] [address] Balwinder Ramirez CO2 [Moles/Vol] 24.4 mmol/L Normal 21.0-32.0 [facility] Comment on above: Performed By: #### L IPA, TSH, CK, CMP, BNP #### [facility] [address] [address] [address] Balwinder Ramirez Creatinine [Mass/Vol] 0.97 mg/dL Normal 0.55-1.02 [facility] Comment on above: Performed By: #### L IPA, TSH, CK, CMP, BNP #### [facility] [address] [place] [address] Dr. Balwinder Ramirez EGFR-AF YEMENI >60 Normal >=60 [facility] Comment on above: Performed By: #### L IPA, TSH, CK, CMP, BNP #### [facility] [address] [place] [address] Dr. Balwinder Ramirez EGFR-NON AF YEMENI 58 mL/min/1.73m2 Critically low >=60 [facility] Comment on above: Performed By: #### L IPA, TSH, CK, CMP, BNP #### [facility] [address] [place] [address] Dr. Balwinder Ramirez Globulin (S) [Mass/Vol] 3.9 g/dL Normal [facility] Comment on above: Performed By: #### L IPA, TSH, CK, CMP, BNP #### [facility] [address] [place] [address] Dr. Balwinder Ramirez Glucose [Mass/Vol] 113 mg/dL Critically high 74-106 T [facility] Comment on above: Performed By: #### L IPA, TSH, CK, CMP, BNP #### [facility] [address] [place] [address] Dr. Balwinder Ramirez Potassium [Moles/Vol] 3.7 mmol/L Normal 3.5-5.1 [facility] Comment on above: Performed By: #### L IPA, TSH, CK, CMP, BNP #### [facility] [address] [address] [address] Balwinder Ramirez Protein [Mass/Vol] 7.8 g/dL Normal 6.4-8.2 [facility] Comment on above: Performed By: #### L IPA, TSH, CK, CMP, BNP #### [facility] [address] [place] [address] Dr. Balwinder Ramirez Sodium [Moles/Vol] 142 mmol/L Normal 136-145 [facility] Comment on above: Performed By: #### L IPA, TSH, CK, CMP, BNP #### [facility] [address] [place] [address] Dr. Balwinder Ramirez Urea nitrogen [Mass/Vol] 25.0 mg/dL Critically high 7.0-18.0 [facility] Comment on above: Performed By: #### L IPA, TSH, CK, CMP, BNP #### [facility] [address] [place] [address] Dr. Balwinder Ramirez Urea nitrogen/Creatinine [Mass ratio] 25.8 mg/mg Normal [facility] Comment on above: Performed By: #### L IPA, TSH, CK, CMP, BNP #### [facility] [address] [place] [address] Dr. Balwinder Ramirez PROTIMEon 02-08-2023 INR Coag (PPP) [Relative time] 0.94 {INR} Normal [facility] Comment on above: Performed By: #### D DIM, PT, PTT #### [facility] [address] [place] [address] Dr. Balwinder Ramirez INR GUIDELINES SEE BELOW Normal [facility] Comment on above: Result Comment: COLLEEN RED INR: 2.0 - 3.0 CONDITIONS NOT LISTED BELOW 2.5 - 3.5 FOR PROSTHETIC HEART VALVE REPLACEMENT 2.5 - 3.5 RECURRENT THROMBOSIS Performed By: #### D DIM, PT, PTT #### [facility] [address] [place] [address] Dr. Balwinder Ramirez PT Coag (PPP) [Time] 10.0 s Normal 9.0-11.6 [facility] Comment on above: Performed By: #### D DIM, PT, PTT #### [facility] [address] [address] [address] Balwinder Ramirez PTTon 02-08-2023 aPTT Coag (Bld) [Time] 23.2 s Normal 22.3-36.2 [facility] Comment on above: Performed By: #### D DIM, PT, PTT #### [facility] [address] [address] [address] Balwinder Ramirez TROPONIN, HIGH SENSITIVITYon 02-08-2023 HSTROP 28.4 pg/mL Normal 4.0-51.3 [facility] Comment on above: Result Comment: CUT- OFF POINTS HAVE BEEN ESTABLISHED BASED ON THE FOURTH UNIVERSAL DEFINITIONS OF MYOCARDIAL INFARCTION. THE UPPER REFERENCE LIMIT (URL) OF TROPONIN, DEFINED THE 99TH PERCENTILE OF cTnI DISTRIBUTION IN A REFERENCE POPULATION, HAS BEEN CONFIRMED THE DECISION THRESHOLD FOR NE DIAGNOSIS. Performed By: #### D DIM, PT, PTT #### [facility] [address] [address] [address] Balwinder Ramirez TSHon 02-08-2023 TSH 1.650 uIU/mL Normal 0.358-3.740 [facility] Comment on above: Performed By: #### L IPA, TSH, CK, CMP, BNP #### [facility] [address] [address] [address] Balwinder Ramirez XR CHEST 1 Von 02-08-2023 XR CHEST 1 V EXAMINATION: XR CHES T 1 V HISTORY: SHORTNESS OF BREATH COMPARISON: No relevant comparison available. FINDINGS: LUNGS: No significant pulmonary parenchymal abnormalities. VASCULATURE: No increased pulmonary vasculature. PLEURA: No pneumothorax, effusion, or pleural thickening. CARDIAC: No cardiomegaly or cardiac silhouette abnormality. MEDIASTINUM: No visible mass or adenopathy. BONES: No fracture or visible bone lesion. OTHER: Negative. IMPRESSION: 1. No acute cardiopulmonary process. Electronically authenticated by: LIZETT AVALOS Date: 2023-02-08 14:51 Normal [facility] Encounters Encounter Date Encounter Type Care Provider Facility Start: 10-29-2023 End: 01-23-2024 ambulatory [facility] Start: 08-14-2023 ambulatory [facility] Start: 08-14-2023 ambulatory [facility] Start: 08-14-2023 End: 08-14-2023 ambulatory [facility] Start: 08-02-2023 End: 08-02-2023 ambulatory [facility] Start: 07-03-2023 End: 07-04-2023 ambulatory [facility] Start: 2023 End: 06-05-2023 ambulatory [facility] Start: 05-22-2023 End: 05-22-2023 ambulatory [facility] Start: 04-17-2023 ambulatory [facility] Start: 04-17-2023 End: 04-17-2023 ambulatory [facility] Start: 03-05-2023 End: 03-06-2023 ambulatory GARC[facility]A [facility]WKINS Facility:[facility] Start: 03-01-2023 ambulatory [facility] Facility:[facility] Start: 02-27-2023 End: 03-06-2023 ambulatory GARCÍA HAWKINS Facility:[facility] Start: 02-24-2023 End: 02-24-[address] ZAFAR KIM Facility:[facility] Start: 02-22-2023 End: 02-22-2023 ambulatory [facility] Start: 02-08-2023 End: 02-09-[address] REBECCA AC . Facility:[facility] Payers Date Payer Category Payer Unknown [id number] 1957 Medicare [id number] 1957 Unknown [id number] 1955 Unknown [id number] [id number] [id number] 1955 Unknown [id number] 2.16.84 [id number] 1957 Unknown [id number] 2.16.84 [id number] 1957 Unknown [id number] 2.16.84 [id number] 1957 Unknown [id number] 2.16.84 [id number] Clinical Notes 02-22-2023 to 10-29-2023 Note Date & Type Note Facility 10-29-2023 Note [facility] Consult Note Reason for visit: afib, s/p DCCV unsuccessful on amiodarone , afib ablation PVI/post box iso/subtrate/CFAE/CTI , 1 month follow up 11/06/23: she is here for 1 month follow-up s/p PVI/posterior box isolation/substrate/CFAE with CTI ablation she been feeling great since ablation No complaints of chest pain, shortness of breath, MONREAL, LE edema she states she felt very well about 3 to 4 weeks after starting Farxiga and then stopped it thinking she did not need it she is still requiring Lasix 20 mg daily I discussed with her restarting Farxiga so we can discontinue Lasix; we discussed that she likely felt really good because patients do not typically feel the effects of Farxiga for 3 to 4 weeks 08/02/23: Patient here for afib ablation HP and consent She has failed trialing AAD with DCCV and still remains in AF She is symptomatic of it with complaints of fatigue, SOB, LE edema PMH: HTN, HFpEF, afib 06/04/23 Pt feels better after increasing BB dose and rate is controlled. Holter reveals episodes of VR in 120s with activity. She is on AC. Holter from 05/22/2023 to 05/24/2023 for evaluating the ventricular rate showed Ventricular rate was 163 bpm as noted on 05/23/2023 at 8:10 AM the minimum recorded was 52 beats a minute with an average rate of 88 bpm she was noted to be in Chronic atrial fibrillation throughout this monitoring. during daytime her ventricular rate was noted to range between 75 to-125bpm for the most part. HPI: Mona Yanez is a 68 y.o. year old with past medical history of A-fib with history of cardioversion, hypertension. She used to be seen in [place] where she used to live for A-fib had a cardioversion in the past about 3 years ago and has not had issues since. She was taken off blood thinners at the time and was not on any antiarrhythmic medication. She was recently seen in [place] ER 02/08/2023 with symptoms of A-fib -she had felt SOB and felt like heart was racing and was concerned she was in A-fib. No cardioversion was attempted due to not being on blood thinners. [place] started her on Cardizem and Eliquis , And hydralazine for hypertension. In the ER visit note she had noted swelling in her arms and legs which have resolved. she had a CT of her chest she was noted to have, Cardiomegaly with biatrial dilatation, acute bilateral pulmonary emboliwith left worse than right, with overall clot burden being considered large, moderate cardiomegaly with significant biatrial dilatation and RV dysfunction and dilatation. She had no echo performed to evaluate for right heart strain. She is fairly asymptomatic but when she is trying to exercise her work-up was taking twice as long. Otherwise she is able to go about her day without concern for shortness of breath, palpitations. She is s/p DCCV on 04/17/23 but failed to convert. Dyspnea continues to improve in regards to PE but she does got dyspneic when she feels her HR elevate she had echocardiogram done which showed function and chamber size, moderate concentric LVH, moderate to severe LA dilatation, mild dilatation of RA and RV, RVSP 29, moderate mitral regurgitation It was recommended post cardioversion to assess for RVR with holter and discussed with patient, she feels her rate heart racing on exertion when she exercises and does get MONREAL / fatigue and opted no holter. she denies chest pain, worsening shortness of breath, worsening MONREAL. She has improved LE edema he has been taking Lasix, she did develop some side effects after initiating Lasix which have resolved. ECG 05/22/23 afib 04/17/23 afib 04/17/23 aflutter Review of Systems Constitutional: Positive for malaise/fatigue. Patient stated she is retaining water on legs, hands, arm, ankles and feet. HENT: Positive for ear pain and hearing loss. Cardiovascular: Positive for dyspnea on exertion. Respiratory: Positive for cough and shortness of breath. Musculoskeletal: Positive for joint swelling. All other systems reviewed and are negative. PMH: Past Medical History: Diagnosis Date Abnormal ECG Atrial fibrillation (CMS/HCC) DCCV UNSUCCESSFUL 04/17/2023 Cardiomegaly WITH BIATRIAL DILATATION Hypertension Obesity BMI 41.19 Pulmonary emboli (CMS/HCC) ACUTE BILATERAL LEFT WORSE THAN RIGHT PSH: Past Surgical History: Procedure Laterality Date ABLATION OF DYSRHYTHMIC FOCUS SECTION, CLASSIC HERNIA REPAIR SH: Social Determinants of Health Tobacco Use: Low Risk (10/29/2023) Patient History Smoking Tobacco Use: Never Smokeless Tobacco Use: Never Passive Exposure: Not on file Alcohol Use: Not on file Financial Resource Strain: Not on file Food Insecurity: Not on file Transportation Needs: Not on file Physical Activity: Not on file Stress: Not on file Social Connections: Not on file Intimate Partner Violence: Not on file Depression: Not on file Housing Stability: Not on file (more content not included)... [facility] 10-29-2023 Note Patient here for 2 m o follow up afib ablation. She does feel better s/p ablation. Denies chest pain, SOB, lightheadedness/syncope, palpitations, and bleeding on Eliquis. Says she doesn't feel like her heart beats the same as it did . Review of Systems Constitutional: Positive for malaise/fatigue. Cardiovascular: Positive for leg swelling. All other systems reviewed and are negative. [facility] 08-14-2023 Note Patient: Mona Yanez Procedure Summary Date: 08/14/23 Room / Location: [facility] / [facility] (Cath) Anesthesia Start: 0845 Anesthesia Stop: 1252 Procedure: Ablation atrial fibrillation Diagnosis: Persistent atrial fibrillation (CMS/HCC) (Persistent atrial fibrillation (CMS/HCC) [I48.19]) Providers: Fahad García MD Responsible Provider: Angeles Cameron MD Anesthesia Type: general ASA Status: 4 Anesthesia Type: general Vitals Value Taken Time BP 131/84 08/14/23 1515 Temp 36.2 ???C (97.2 ???F) 08/14/23 1243 Pulse 62 08/14/23 1521 Resp 11 08/14/23 1521 SpO2 96 % 08/14/23 1521 Vitals shown include unvalidated device data. Anesthesia Post Evaluation Patient location during evaluation: PACU Patient participation: complete - patient participated Level of consciousness: awake and alert Pain score: 1 Pain management: adequate Multimodal analgesia pain management approach Airway patency: patent Two or more strategies used to mitigate risk of obstructive sleep apnea Cardiovascular status: hemodynamically stable Respiratory status: acceptable, room air, spontaneous ventilation and nonlabored ventilation Hydration status: euvolemic Patient is hemodynamically stable and is able to be discharged from PACU per anesthesia protocol. There were no known notable events for this encounter. [facility] 08-14-2023 Note Patient: Mona Yanez Procedure Summary Date: 08/14/23 Room / Location: [facility] EP / [facility] (Cath) Anesthesia Start: 844 Anesthesia Stop: Procedure: Ablation atrial fibrillation Diagnosis: Persistent atrial fibrillation (CMS/HCC) (Persistent atrial fibrillation (CMS/HCC) [I48.19]) Providers: Fahad García MD Responsible Provider: Angeles Cameron MD Anesthesia Type: general ASA Status: 4 Anesthesia Post Transport Note Transport to: PACU O2 Route: room air Patient Monitor: direct observation Transport: uneventful Patient condition is: stable [facility] 08-14-2023 Note ATRIAL FIBRILLATION ABLATION PROCEDURE NOTE DATE OF PROCEDURE: 08/14/2023 PERFORMING PHYSICIAN: Dr. Fahad García ENGINEERING MATHEMATICIAN: Dr Ross Montejo CONSENT: Patient NAME OF THE PROCEDURE: Pulmonary Vein Isolation and Comprehensive EP study. INDICATIONS FOR PROCEDURE: 1. Late persistent atrial fibrillation. FLUROSCOPY: 3.2minutes/43mGy. EBL: 25cc SPECIMEN REMOVED: None PROCEDURES PERFORMED: 1. Sonosite guided venous access as noted below and images stored in PACS. 2. Comprehensive EP study and catheter ablation for persistent atrial fibrillation through the pulmonary vein isolation technique. This includes right atrial recording and pacing, His bundle recording and right ventricular recording and pacing. 3. Intracardiac EP 3D mapping. 4. Intracardiac echocardiogram 5. Left atrial and coronary sinus recording and pacing to assess ablation results. 6. Left heart pressure measurements and LV pacing and recording. 7. Induction of arrhythmia and testing of ablation results using intravenous adenosine infusion. 8. Fluroscopy. INDICATION: 68year old with past medical history of A-fib with history of cardioversion, hypertension. She used to be seen in [place] where she used to live and had a cardioversion in the past about 3 years ago and has not had issues since. She was taken off blood thinners at the time and was not on any antiarrhythmic medication. She was recently seen in [place] ER 02/08/2023 with symptoms of A-fib -she had felt SOB and felt like heart was racing and was concerned she was in A-fib. No cardioversion was attempted due to not being on blood thinners. CT of her chest she was noted to have, Cardiomegaly with biatrial dilatation, acute bilateral pulmonary emboli with left worse than right, with overall clot burden being considered large, moderate cardiomegaly with significant biatrial dilatation and RV dysfunction and dilatation. She was then placed on Amio and DCCV attempted on 04/17/23 but failed to convert despite Amio load. Echocardiogram done which showed function and chamber size, moderate concentric LVH, moderate to severe LA dilatation, mild dilatation of RA and RV, RVSP 29, moderate mitral regurgitation. She has come for PVI to maintain SR. PROCEDURE NOTE: On the day of presentation, she was noted to be in Afib and so BECCA was done to rule out EMMANUEL thrombus. Risks, benefits and alternatives of the procedure were discussed with the patient and family who agreed to proceed. Please refer to my consult note for details of the discussion and of indications. The patient was prepped and draped following which four venous access was procured on right side as noted below. Ultrasound was used to determine the course and patency of the femoral veins on both sides and they were noted to be patent and the image stored in PACS. After infiltration with 1% lidocaine, 4 venous sheaths were placed in the right as noted below and a radial arterial line was placed by Anesthesia team. RFV: 8Fx3, [employer] ThermoCool SF Bi-Directional over SL1/ Vizigo, SL1: PentRUSTY kessler Catheter (EZ Steer). 9F: ICE catheter. Following venous access, heparin bolus was given followed by continuous intravenous drip to target ACT around 350. An intracardiac ultrasound catheter was inserted into the right atrium to examine the right atrial anatomy, atrial septum, pulmonary vein anatomy and to monitor for pericardial effusion and guide transseptal access. The LA and RA was significantly dilated. At baseline, there was no pericardial effusion and no EMMANUEL clot but noted a very prominent Coumadin ridge. Esophagus was mapped using the CARTOSOUND 3D mapping software and noted to be towards the RIPV inferiorly. Transeptal access was procured with ICE guidance using a SL-1 sheath and Renate needle. Following this, pentaray catheter was advanced and the multipolar mapping performed of the LA creating a geometry was made as patient was in AF. After FAM geometry was performed, a 2nd transseptal was performed with an SL1 sheath using a Renate needle. Following transseptal, the SL1 sheath was removed and Vizigo sheath was advanced over which the ablation catheter ST-SF thermocol ablation catheter was advanced. Ablation was then performed. A temperature probe was advanced to the middle of the LA to monitor the temperature. Ablation was performed using [address] for 10-12s in the anterior LA and 5-8seconds in the posterior wall and roof area. After completion of the left sided WACA, no signals were noted in the LSPV or LIPV and entrance block was noted. Dissociated signals were noted from LPSV and ganglio response was noted when ablating in the LSPV. After this, I proceeded to perform ablation of the right-sided vein. Following right WACA, the veins were isolated. I ensured that on the anterior aspect of right WACA and in yeimi area, phrenic capture was ruled out before any ablation was performed. So I d (more content not included)... [facility] 08-14-2023 Note Arterial Line: Date/Time: 08/14/2023 8:15 AM An arterial line was placed Procedure performed using ultrasound guidance.in the pre-op for the following indication(s): continuous blood pressure monitoring and blood sampling needed. A 20 G (size), 1 and 3/4 inch (length), Angiocath (type) catheter was placed, Seldinger technique used , into the Right radial artery, secured by Tegaderm and tape. Events: hematoma during insertion and patient tolerated procedure well with no complications. Medications Administered Lidocaine (XYLOCAINE) 1 % SubQ, 5 mL midazolam (VERSED) IV, 2 mg Staffing Performed: resident/OPENER/CAA Anesthesiologist: Angeles Cameron MD Resident/OPENER: Dilip Feliciano MD Performed by: Dilip Feliciano MD Authorized by: Angeles Cameron MD [facility] 08-14-2023 Note Airway Date/Time: 08/14/2023 8:59 AM Urgency: elective Airway not difficult General Information and Staff Patient location during procedure: OR Anesthesiologist: Angeles Cameron MD Resident/OPENER/CAA: Dilip Feliciano MD Performed: anesthesiologist and other anesthesia staff Learner assisted: Gomez Rothman MS4 Indications and Patient Condition Indications for airway management: anesthesia Spontaneous Ventilation: absent Sedation level: deep Preoxygenated: yes Mask difficulty assessment: 1 - vent by mask Final Airway Details Final airway type: endotracheal airway Successful airway: ETT Cuffed: yes Successful intubation technique: video laryngoscopy Facilitating devices/methods: intubating stylet Endotracheal tube insertion site: oral Blade: Duran Blade size: #3 ETT size (mm): 7.5 Cormack-Lehane Classification: grade I - full view of glottis Placement verified by: chest auscultation and capnometry Measured from: lips ETT to lips (cm): 22 Number of attempts at approach: 1 Number of other approaches attempted: 0 [facility] 08-14-2023 Note Patient: Mona Yanez Procedure Information Date/Time: 08/14/23829 Procedure: Ablation atrial fibrillation Location: [facility] / [facility] (Cath) Providers: Fahad García MD Relevant Problems Cardio (+) Acute on chronic heart failure with preserved ejection fraction (CMS/HCC) (+) Hypertension (+) Multiple subsegmental pulmonary emboli without acute cor pulmonale (CMS/HCC) (+) Paroxysmal atrial fibrillation (CMS/HCC) (+) Persistent atrial fibrillation (CMS/HCC) Clinical information reviewed: Tobacco Allergies Meds Med Hx Surg Hx OB Status Fam Hx Soc Hx Physical Exam Airway Mallampati: III TM distance: >3 FB Neck ROM: full Cardiovascular Rhythm: irregular Rate: normal Comments: A fib Dental - normal exam Pulmonary (+) wheezes Comments: Will give albuterol Abdominal (+) obese Abdomen: soft Bowel sounds: normal Anesthesia Plan ASA 4 general The patient is not a current smoker. Patient did not smoke on day of procedure. intravenous induction Postoperative administration of opioids is intended. Anesthetic plan and risks discussed with patient. Use of blood products discussed with patient who consented to blood products. Plan discussed with attending and resident. Additional Equipment Requests [facility] 08-02-2023 Note OR Electrophysiology Consult Note Reason for visit: afib, s/p DCCV unsuccessful on amiodarone , afib ablation hp and consent 08/02/23: Patient here for afib ablation HP and consent She has failed trialing AAD with DCCV and still remains in AF She is symptomatic of it with complaints of fatigue, SOB, LE edema PMH: HTN, HFpEF, afib 06/04/23 Pt feels better after increasing BB dose and rate is controlled. Holter reveals episodes of VR in 120s with activity. She is on AC. Holter from 05/22/2023 to 05/24/2023 for evaluating the ventricular rate showed Ventricular rate was 163 bpm as noted on 05/23/2023 at 8:10 AM the minimum recorded was 52 beats a minute with an average rate of 88 bpm she was noted to be in Chronic atrial fibrillation throughout this monitoring. during daytime her ventricular rate was noted to range between 75 to-125bpm for the most part. HPI: Mona Yanez is a 68 y.o. year old with past medical history of A-fib with history of cardioversion, hypertension. She used to be seen in [place] where she used to live for A-fib had a cardioversion in the past about 3 years ago and has not had issues since. She was taken off blood thinners at the time and was not on any antiarrhythmic medication. She was recently seen in [place] ER 02/08/2023 with symptoms of A-fib -she had felt SOB and felt like heart was racing and was concerned she was in A-fib. No cardioversion was attempted due to not being on blood thinners. [place] started her on Cardizem and Eliquis , And hydralazine for hypertension. In the ER visit note she had noted swelling in her arms and legs which have resolved. she had a CT of her chest she was noted to have, Cardiomegaly with biatrial dilatation, acute bilateral pulmonary emboliwith left worse than right, with overall clot burden being considered large, moderate cardiomegaly with significant biatrial dilatation and RV dysfunction and dilatation. She had no echo performed to evaluate for right heart strain. She is fairly asymptomatic but when she is trying to exercise her work-up was taking twice as long. Otherwise she is able to go about her day without concern for shortness of breath, palpitations. She is s/p DCCV on 04/17/23 but failed to convert. Dyspnea continues to improve in regards to PE but she does got dyspneic when she feels her HR elevate she had echocardiogram done which showed function and chamber size, moderate concentric LVH, moderate to severe LA dilatation, mild dilatation of RA and RV, RVSP 29, moderate mitral regurgitation It was recommended post cardioversion to assess for RVR with holter and discussed with patient, she feels her rate heart racing on exertion when she exercises and does get MONREAL / fatigue and opted no holter. she denies chest pain, worsening shortness of breath, worsening MONREAL. She has improved LE edema he has been taking Lasix, she did develop some side effects after initiating Lasix which have resolved. ECG 05/22/23 afib 04/17/23 afib 04/17/23 aflutter Review of Systems Constitutional: Positive for malaise/fatigue. Patient stated she is retaining water on legs, hands, arm, ankles and feet. HENT: Positive for ear pain and hearing loss. Cardiovascular: Positive for dyspnea on exertion. Respiratory: Positive for cough and shortness of breath. Musculoskeletal: Positive for joint swelling. All other systems reviewed and are negative. PMH: Past Medical History: Diagnosis Date Abnormal ECG Hypertension PSH: No past surgical history on file. SH: Social Determinants of Health Tobacco Use: Low Risk (05/22/2023) Patient History Smoking Tobacco Use: Never Smokeless Tobacco Use: Never Passive Exposure: Not on file Alcohol Use: Not on file Financial Resource Strain: Not on file Food Insecurity: Not on file Transportation Needs: Not on file Physical Activity: Not on file Stress: Not on file Social Connections: Not on file Intimate Partner Violence: Not on file Depression: Not on file Housing Stability: Not on file Allergies: No Known Allergies Weight: 119kg Visit Vitals BP (!) 152/111 (BP Location: Right arm, Patient Position: Sitting) Pulse 81 Ht 1.702 m (5' 7 ) Wt 119 kg (263 lb) SpO2 98% BMI 41.19 kg/m??? OB Status Postmenopausal Smoking Status Never BSA 2.37 m??? Meds: Current Outpatient Medications on File Prior to Visit Medication Sig Dispense Refill Eliquis 5 mg tablet Take 1 tablet (5 mg) by mouth in the morning and at bedtime. 180 tablet 3 furosemide (Lasix) 20 mg tablet Take 1 tablet (20 mg) by mouth in the morning. (Patient taking differently: Take 20 mg by mouth in the morning and at bedtime.) 30 tablet 11 hydrALAZINE (Apresoline) 50 mg tablet Take 50 mg by mouth in the morning and at bedtime. lisinopril 40 mg tablet Take 40 mg by mouth in the morning. metoprolol tartrate (Lopressor) 25 mg tablet Take 1 tablet (25 mg) by mouth in the morning and at bedtim (more content not included)... [facility] 08-02-2023 Note Patient here prior t o afib ablation, scheduled for 08/14/[address] García. Still denies chest pain, lightheadedness, palpitations, and bleeding on Eliquis. Review of Systems Constitutional: Positive for malaise/fatigue. Cardiovascular: Positive for dyspnea on exertion. Respiratory: Positive for wheezing. All other systems reviewed and are negative. [facility] 07-05-2023 Note Afib ablation becca order [facility] 2023 Note OR Electrophysiology Consult Note Date of Telehealth Visit: 06/04/23 The patient was notified that using 3rd republican telecommunication application (e.g., Dialoggy) is not HIPPA compliant and may carry some privacy risks. Yes The visit was conducted [id number] with the use of audio and video technology Annita. between patient and provider for a virtual visit. Verbal consent to provide and bill this service was obtained on 06/04/23 . No signature was obtained due to the COVID-19 pandemic. Patient Location: Patient Home I spent 22 minutes of total time on the day of the visit. This time was spent preparing for the visit, obtaining and reviewing any outside history/data, taking a history, performing an exam/evaluation, counseling and educating patient/family about the diagnosis and plan, performing medical decision making, referring to and communicating with other health care referrals, independently interpreting results and documenting in the EMR, and coordinating care. Please see the additional documentation in this note for specific details. Reason for visit: afib, s/p DCCV unsuccessful on amiodarone 06/04/23 Pt feels better after increasing BB dose and rate is controlled. Holter reveals episodes of VR in 120s with activity. She is on AC. Holter from 05/22/2023 to 05/24/2023 for evaluating the ventricular rate showed Ventricular rate was 163 bpm as noted on 05/23/2023 at 8:10 AM the minimum recorded was 52 beats a minute with an average rate of 88 bpm she was noted to be in Chronic atrial fibrillation throughout this monitoring. during daytime her ventricular rate was noted to range between 75 to-125bpm for the most part. HPI: Mona Yanez is a 68 y.o. year old with past medical history of A-fib with history of cardioversion, hypertension. She used to be seen in [place] where she used to live for A-fib had a cardioversion in the past about 3 years ago and has not had issues since. She was taken off blood thinners at the time and was not on any antiarrhythmic medication. She was recently seen in [place] ER 02/08/2023 with symptoms of A-fib -she had felt SOB and felt like heart was racing and was concerned she was in A-fib. No cardioversion was attempted due to not being on blood thinners. [place] started her on Cardizem and Eliquis , And hydralazine for hypertension. In the ER visit note she had noted swelling in her arms and legs which have resolved. she had a CT of her chest she was noted to have, Cardiomegaly with biatrial dilatation, acute bilateral pulmonary emboliwith left worse than right, with overall clot burden being considered large, moderate cardiomegaly with significant biatrial dilatation and RV dysfunction and dilatation. She had no echo performed to evaluate for right heart strain. She is fairly asymptomatic but when she is trying to exercise her work-up was taking twice as long. Otherwise she is able to go about her day without concern for shortness of breath, palpitations. She is s/p DCCV on 04/17/23 but failed to convert. Dyspnea continues to improve in regards to PE but she does got dyspneic when she feels her HR elevate she had echocardiogram done which showed function and chamber size, moderate concentric LVH, moderate to severe LA dilatation, mild dilatation of RA and RV, RVSP 29, moderate mitral regurgitation It was recommended post cardioversion to assess for RVR with holter and discussed with patient, she feels her rate heart racing on exertion when she exercises and does get MONREAL / fatigue and opted no holter. she denies chest pain, worsening shortness of breath, worsening MONREAL. She has improved LE edema he has been taking Lasix, she did develop some side effects after initiating Lasix which have resolved. ECG 05/22/23 afib 04/17/23 afib 04/17/23 aflutter Review of Systems Constitutional: Positive for malaise/fatigue. Patient stated she is retaining water on legs, hands, arm, ankles and feet. HENT: Positive for ear pain and hearing loss. Cardiovascular: Positive for dyspnea on exertion. Respiratory: Positive for cough and shortness of breath. Musculoskeletal: Positive for joint swelling. All other systems reviewed and are negative. PMH: Past Medical History: Diagnosis Date Abnormal ECG Hypertension PSH: No past surgical history on file. SH: Social Determinants of Health Tobacco Use: Low Risk (05/22/2023) Patient History Smoking Tobacco Use: Never Smokeless Tobacco Use: Never Passive Exposure: Not on file Alcohol Use: Not on file Financial Resource Strain: Not on file Food Insecurity: Not on file Transportation Needs: Not on file Physical Activity: Not on file Stress: Not on file Social Connections: Not on file Intimate Partner Violence: Not on file Depression: Not on file Housing Stability: Not on file Allergies: No Known Allergies Weight: No weight available Visit Vitals OB Status Postmenopausal Smoking Stat (more content not included)... [facility] 05-22-2023 Note [place] Electrophysiology Consult Note Reason for visit: follow up htn afib, s/p DCCV unsuccessful on amiodarone HPI: she is here for follow-up s/p DCCV Dyspnea continues to improve in regards to PE but she does got dyspneic when she feels her HR elevate she had echocardiogram done which showed function and chamber size, moderate concentric LVH, moderate to severe LA dilatation, mild dilatation of RA and RV, RVSP 29, moderate mitral regurgitation It was recommended post cardioversion to assess for RVR with holter and discussed with patient, she feels her rate heart racing on exertion when she exercises and does get MONREAL / fatigue and opted no holter. she denies chest pain, worsening shortness of breath, worsening MONREAL. She has improved LE edema he has been taking Lasix, she did develop some side effects after initiating Lasix which have resolved. ECG 05/22/23 afib 04/17/23 afib 04/17/23 aflutter HPI: Mona Yanez is a 67 y.o. year old with past medical history of A-fib with history of cardioversion, hypertension. She used to be seen in [place] where she used to live for A-fib had a cardioversion in the past about 3 years ago and has not had issues since. She was taken off blood thinners at the time and was not on any antiarrhythmic medication. She was recently seen in [place] ER 02/08/2023 with symptoms of A-fib -she had felt SOB and felt like heart was racing and was concerned she was in A-fib. No cardioversion was attempted due to not being on blood thinners. [place] started her on Cardizem and Eliquis , And hydralazine for hypertension. In the ER visit note she had noted swelling in her arms and legs which have resolved. she had a CT of her chest she was noted to have, Cardiomegaly with biatrial dilatation, acute bilateral pulmonary emboli with left worse than right, with overall clot burden being considered large, moderate cardiomegaly with significant biatrial dilatation and RV dysfunction and dilatation. She had no echo performed to evaluate for right heart strain. She is fairly asymptomatic but when she is trying to exercise her work-up was taking twice as long. Otherwise she is able to go about her day without concern for shortness of breath, palpitations. She has been experiencing lower extremity swelling and is not on any diuretic, was not given any diuretic in the ER and NT pro BNP was 637 Other labs that were completed showed sodium 142, K3.7, chloride 108, BUN 25, creatinine 0.97, GFR 58 ECG today is A-fib, rate controlled PMH: Past Medical History: Diagnosis Date Abnormal ECG Hypertension PSH: History reviewed. No pertinent surgical history. SH: Social Determinants of Health Tobacco Use: Low Risk (05/22/2023) Patient History Smoking Tobacco Use: Never Smokeless Tobacco Use: Never Passive Exposure: Not on file Alcohol Use: Not on file Financial Resource Strain: Not on file Food Insecurity: Not on file Transportation Needs: Not on file Physical Activity: Not on file Stress: Not on file Social Connections: Not on file Intimate Partner Violence: Not on file Depression: Not on file Housing Stability: Not on file Allergies: No Known Allergies Weight: 116kg Visit Vitals BP 142/82 (BP Location: Left arm, Patient Position: Sitting, BP Cuff Size: Adult) Pulse 86 Resp 12 Ht 1.702 m (5' 7 ) Wt 116 kg (256 lb) SpO2 98% BMI 40.10 kg/m??? OB Status Postmenopausal Smoking Status Never BSA 2.34 m??? Meds: Current Outpatient Medications on File Prior to Visit Medication Sig Dispense Refill Eliquis 5 mg tablet Take 1 tablet (5 mg) by mouth in the morning and at bedtime. 180 tablet 3 furosemide (Lasix) 20 mg tablet Take 1 tablet (20 mg) by mouth in the morning. 30 tablet 11 hydrALAZINE (Apresoline) 50 mg tablet Take 50 mg by mouth in the morning and at bedtime. lisinopril 40 mg tablet Take 40 mg by mouth in the morning. [DISCONTINUED] dilTIAZem CD (Cardizem CD) 300 mg 24 hr capsule Take 300 mg by mouth in the morning. No current facility-administered medications on file prior to visit. ROS: Cardio Basic Cardiovascular Symptoms: no lightheadedness, no leg edema, no syncope, no orthopnea, no PND, no claudication, Constitutional Constitutional: no fever, no night sweats, no significant weight gain, no significant weight loss, no exercise intolerance Eyes Eyes: no dry eyes, no irritation, no vision change ENMT Ears: no difficulty hearing, no ear pain Nose: no frequent nosebleeds, Mouth/Throat: no sore throat, no bleeding gums, no snoring, no dry mouth, no mouth ulcers, no oral abnormalities, no teeth problems Respiratory Respiratory: no cough, no wheezing, no coughing up blood, no sleep apnea Musculoskeletal Musculoskeletal: no muscle aches, no muscle weakness, joint pain+, no back pain, no swelling in the extremities Integumentary Skin no rash, no ulcer, no varicosities, no disc (more content not included)... [facility] 04-17-2023 Note DIRECT CARDIOVERSION PROCEDURE NOTE Date: 04/17/23 Type of procedure: DC Cardioversion. Performed by: Fahad García MD ENGINEERING MATHEMATICIAN: Dr Summer Rea Informed consent: Signed by patient. Indication: 67 y.o. year old with past medical history of A-fib with history of cardioversion, hypertension. She used to be seen in [place] where she used to live for A-fib had a cardioversion in the past about 3 years ago and has not had issues since. She was taken off blood thinners at the time and was not on any antiarrhythmic medication. She was recently seen in [place] ER 02/08/2023 with symptoms of A-fib -she had felt SOB and felt like heart was racing and was concerned she was in A-fib. No cardioversion was attempted due to not being on blood thinners. [place] started her on Cardizem and Eliquis , hydralazine for hypertension. She had a CT of her chest she was noted to have, Cardiomegaly with biatrial dilatation, acute bilateral pulmonary emboli with left worse than right, with overall clot burden being considered large, moderate cardiomegaly with significant biatrial dilatation and RV dysfunction and dilatation. She had been on uninterrupted anticoagulation for minimum of 6 weeks. Hence, BECCA was deferred after patient wanted to avoid this. Preparation and technique: Patient was brought into the procedure room. After an informed consent was obtained following a discussion with the patient where I explained the risk and benefit of the procedure that is not limited to skin de paz, fluid in the lungs, heart attack, stroke, or even , though that is very rare. Patches were placed in anteroposterior direction and once patient was made comfortable with Versed 3mg and Fentanyl 75mcg. Following sedation, the patient underwent synchronized cardioversion using 360J which failed to converted to sinus rhythm. Defibrillation was reattempted afterrepositioning of patches and 360J which also failed to convert. Patched were repositioned and paddles were applied for increased apposition of patches. Repeat DCCV with 360J failed to convert. Post procedure, the patient was stable. No complications noted. Plan: Continue anticoagulation and Holter to see if evidence of RVR. Stop Amiodarone. Fahad García MD Cardiac Electrophysiology [facility] 04-17-2023 Note Patient: Mona Yanez Procedure Information Date/Time: 04/17/23 1340 Procedure: Cardioversion - BECCA with DCCV Location: [facility] / [facility] (Cath) Providers: Fahad García MD Clinical information reviewed: Allergies Meds OB Status Physical Exam Airway Mallampati: II TM distance: >3 FB Neck ROM: full Cardiovascular Dental Pulmonary Abdominal Anesthesia Plan ASA 2 CSE Anesthetic plan and risks discussed with patient. Use of blood products discussed with patient who. Additional Equipment Requests [facility] 03-05-2023 Note OR Electrophysiology Consult Note Reason for visit: 2 week follow up htn afib HPI: she is here for follow-up, has been on anticoagulation for greater than 3 weeks ago he continues to be in A-fib. Dyspnea has improved regarding her PE she had echocardiogram done which showed function and chamber size, moderate concentric LVH, moderate to severe LA dilatation, mild dilatation of RA and RV, RVSP 29, moderate mitral regurgitation she has been tolerating blood thinners fine with no complaints of of bleeding tendencies she denies chest pain, worsening shortness of breath, worsening MONREAL. She has improved LE edema he has been taking Lasix, she did develop some side effects after initiating Lasix which have resolved. HPI: Mona Yanez is a 67 y.o. year old with past medical history of A-fib with history of cardioversion, hypertension. She used to be seen in [place] where she used to live for A-fib had a cardioversion in the past about 3 years ago and has not had issues since. She was taken off blood thinners at the time and was not on any antiarrhythmic medication. She was recently seen in [place] ER 02/08/2023 with symptoms of A-fib -she had felt SOB and felt like heart was racing and was concerned she was in A-fib. No cardioversion was attempted due to not being on blood thinners. [place] started her on Cardizem and Eliquis , And hydralazine for hypertension. In the ER visit note she had noted swelling in her arms and legs which have resolved. she had a CT of her chest she was noted to have, Cardiomegaly with biatrial dilatation, acute bilateral pulmonary emboli with left worse than right, with overall clot burden being considered large, moderate cardiomegaly with significant biatrial dilatation and RV dysfunction and dilatation. She had no echo performed to evaluate for right heart strain. She is fairly asymptomatic but when she is trying to exercise her work-up was taking twice as long. Otherwise she is able to go about her day without concern for shortness of breath, palpitations. She has been experiencing lower extremity swelling and is not on any diuretic, was not given any diuretic in the ER and NT pro BNP was 637 Other labs that were completed showed sodium 142, K3.7, chloride 108, BUN 25, creatinine 0.97, GFR 58 ECG today is A-fib, rate controlled PMH: Past Medical History: Diagnosis Date Abnormal ECG Hypertension PSH: No past surgical history on file. SH: Social Determinants of Health Tobacco Use: Low Risk Smoking Tobacco Use: Never Smokeless Tobacco Use: Never Passive Exposure: Not on file Alcohol Use: Not on file Financial Resource Strain: Not on file Food Insecurity: Not on file Transportation Needs: Not on file Physical Activity: Not on file Stress: Not on file Social Connections: Not on file Intimate Partner Violence: Not on file Depression: Not on file Housing Stability: Not on file Allergies: No Known Allergies Weight: 115kg Visit Vitals BP 115/78 (BP Location: Right arm, Patient Position: Sitting) Pulse 91 Ht 1.702 m (5' 7 ) Wt 115 kg (254 lb) SpO2 96% BMI 39.78 kg/m??? Smoking Status Never BSA 2.33 m??? Meds: Current Outpatient Medications on File Prior to Visit Medication Sig Dispense Refill dilTIAZem CD (Cardizem CD) 300 mg 24 hr capsule Take 300 mg by mouth in the morning. Eliquis 5 mg tablet Take 5 mg by mouth in the morning and at bedtime. furosemide (Lasix) 20 mg tablet Take 1 tablet (20 mg) by mouth in the morning. (Patient taking differently: Take 20 mg by mouth in the morning and at bedtime.) 30 tablet 11 hydrALAZINE (Apresoline) 50 mg tablet Take 50 mg by mouth in the morning and at bedtime. lisinopril 40 mg tablet Take 40 mg by mouth in the morning. No current facility-administered medications on file prior to visit. ROS: Cardio Basic Cardiovascular Symptoms: no lightheadedness, no leg edema, no syncope, no orthopnea, no PND, no claudication, Constitutional Constitutional: no fever, no night sweats, no significant weight gain, no significant weight loss, no exercise intolerance Eyes Eyes: no dry eyes, no irritation, no vision change ENMT Ears: no difficulty hearing, no ear pain Nose: no frequent nosebleeds, Mouth/Throat: no sore throat, no bleeding gums, no snoring, no dry mouth, no mouth ulcers, no oral abnormalities, no teeth problems Respiratory Respiratory: no cough, no wheezing, no coughing up blood, no sleep apnea Musculoskeletal Musculoskeletal: no muscle aches, no muscle weakness, joint pain+, no back pain, no swelling in the extremities Integumentary Skin no rash, no ulcer, no varicosities, no discoloration, no pruritus Neurologic Neurologic: no loss of consciousness, no weakness, no numbness, no seizures, no dizziness, no headaches Psychiatric Psych: no depression, feeling safe in relationship, no alcohol abuse, Hematologic/Lymphat (more content not included)... [facility] 03-05-2023 Note Patient here for 2 w [place] follow up. She had echo this morning and labs on 03/02. Says she doubled her furosemide the past few days and still isn't urinating often. SOB is slightly better but is still actively there . Denies chest pain and bleeding on Eliquis. Had vertigo she said for a few days after starting furosemide but this has since resolved. Review of Systems Constitutional: Positive for malaise/fatigue. Patient stated she is retaining water on legs, hands, arm, ankles and feet. HENT: Positive for ear pain and hearing loss. Cardiovascular: Positive for dyspnea on exertion. Respiratory: Positive for cough and shortness of breath. Musculoskeletal: Positive for joint swelling. All other systems reviewed and are negative. [facility] 02-22-2023 Note - in the past she blake s had swelling from A-fib - today she continues to have LE edema and she feels like her arms are puffy - she denies shortness of breath, MONREAL. She is able to exercise normally only takes her 45 minutes but has been taking an hour and a half, I recommend her for now to take it easy due to having PE - NYHA I-II, NICM - pending TTE - continue GDMT: Lisinopril 40 mg daily, Lasix 20 mg daily. pending echo we will consider further GDMT I did instruct her she can take 2 Lasix if she feels like 20 mg is not a month for her leg swelling - BMP in a week [facility] 02-22-2023 Note - [id number] 5 for age, gender, hypertension, PE, could be 6 if you consider potential HFpEF - continue Eliquis 5 mg twice daily - continue Cardizem 30 mg daily, she just took it about an hour before arrival, will have patient monitor heart rate at home and let us know if she sustains rates above 100-110 as well as monitoring blood pressure [facility] 02-22-2023 Note - her blood pressure was controlled prior to having A-fib again - she takes lisinopril 40 mg daily, she was on nifedipine and that was discontinued per [place] and she was started on Cardizem 300 mg, hydralazine 50 mg twice daily - I will have her monitor blood pressure and heart rate at home just took her meds at about 930 [facility] 02-22-2023 Note - she had completed her 7-day loading dose of 10 mg Eliquis twice daily, continue Eliquis 5 mg twice daily - we will order TTE as this was not done with her admission at [place] to evaluate for right heart strain along with any cardiomyopathy or valvular abnormalities - per patient PCP office deferred PE management to cardiology - she is stable as of this time with pulse ox reading greater than 95%, pending echo results may need consultation with vascular service otherwise will maintain Eliquis as she will be on this for life [facility] 02-22-2023 Note [facility] Consult Note Reason for visit: new patient, A-fib HPI: Mona Yanez is a 67 y.o. year old with past medical history of A-fib with history of cardioversion, hypertension. She used to be seen in [place] where she used to live for A-fib had a cardioversion in the past about 3 years ago and has not had issues since. She was taken off blood thinners at the time and was not on any antiarrhythmic medication. She was recently seen in [place] ER 02/08/2023 with symptoms of A-fib -she had felt SOB and felt like heart was racing and was concerned she was in A-fib. No cardioversion was attempted due to not being on blood thinners. [place] started her on Cardizem and Eliquis , And hydralazine for hypertension. In the ER visit note she had noted swelling in her arms and legs which have resolved. she had a CT of her chest she was noted to have, Cardiomegaly with biatrial dilatation, acute bilateral pulmonary emboli with left worse than right, with overall clot burden being considered large, moderate cardiomegaly with significant biatrial dilatation and RV dysfunction and dilatation. She had no echo performed to evaluate for right heart strain. She is fairly asymptomatic but when she is trying to exercise her work-up was taking twice as long. Otherwise she is able to go about her day without concern for shortness of breath, palpitations. She has been experiencing lower extremity swelling and is not on any diuretic, was not given any diuretic in the ER and NT pro BNP was 637 Other labs that were completed showed sodium 142, K3.7, chloride 108, BUN 25, creatinine 0.97, GFR 58 ECG today is A-fib, rate controlled PMH: Past Medical History: Diagnosis Date Abnormal ECG Hypertension PSH: History reviewed. No pertinent surgical history. SH: Social Determinants of Health Tobacco Use: Low Risk Smoking Tobacco Use: Never Smokeless Tobacco Use: Never Passive Exposure: Not on file Alcohol Use: Not on file Financial Resource Strain: Not on file Food Insecurity: Not on file Transportation Needs: Not on file Physical Activity: Not on file Stress: Not on file Social Connections: Not on file Intimate Partner Violence: Not on file Depression: Not on file Housing Stability: Not on file Allergies: No Known Allergies Weight: 118kg Visit Vitals BP (!) 142/94 (BP Location: Left arm, Patient Position: Sitting, BP Cuff Size: Large adult) Pulse 107 Ht 1.702 m (5' 7 ) Wt 118 kg (259 lb 12.8 oz) SpO2 97% BMI 40.69 kg/m??? Smoking Status Never BSA 2.36 m??? Meds: Current Outpatient Medications on File Prior to Visit Medication Sig Dispense Refill dilTIAZem CD (Cardizem CD) 300 mg 24 hr capsule Take 300 mg by mouth in the morning. Eliquis 5 mg tablet Take 5 mg by mouth in the morning and at bedtime. hydrALAZINE (Apresoline) 50 mg tablet Take 50 mg by mouth in the morning and at bedtime. lisinopril 40 mg tablet Take 40 mg by mouth in the morning. No current facility-administered medications on file prior to visit. ROS: Cardio Basic Cardiovascular Symptoms: no lightheadedness, no leg edema, no syncope, no orthopnea, no PND, no claudication, Constitutional Constitutional: no fever, no night sweats, no significant weight gain, no significant weight loss, no exercise intolerance Eyes Eyes: no dry eyes, no irritation, no vision change ENMT Ears: no difficulty hearing, no ear pain Nose: no frequent nosebleeds, Mouth/Throat: no sore throat, no bleeding gums, no snoring, no dry mouth, no mouth ulcers, no oral abnormalities, no teeth problems Respiratory Respiratory: no cough, no wheezing, no coughing up blood, no sleep apnea Musculoskeletal Musculoskeletal: no muscle aches, no muscle weakness, joint pain+, no back pain, no swelling in the extremities Integumentary Skin no rash, no ulcer, no varicosities, no discoloration, no pruritus Neurologic Neurologic: no loss of consciousness, no weakness, no numbness, no seizures, no dizziness, no headaches Psychiatric Psych: no depression, feeling safe in relationship, no alcohol abuse, Hematologic/Lymphatic Hematologic/Lymphatic no swollen glands, no bruising Physical Exam: Constitutional General Appearance: well-nourished, well-developed, appears stated age Level of Distress: comfortable Psychiatric Mental Status: alert, normal affect Orientation: oriented to time, place, and person Insight: good judgement Eyes Lids and Conjunctivae: non-injected, no xanthelasma ENMT Ears: no lesions on external ear Nose: no lesions on external nose Oropharynx: no cyanosis, no pallor Neck Neck: supple, trachea midline Carotid Arteries: bilateral normal upstroke, no bruits Jugular Veins: normal jugular venous pressure Thyroid: not enlarged Lungs Respiratory Effort: unlabored Chest Exam: normal curvature, no thoracic deformity Auscultation: clear, no wheezing, no rales, no rho (more content not included)... [facility] 02-22-2023 Note Patient is here toda y to establish care regarding atrial fibrillation Review of Systems Constitutional: Positive for malaise/fatigue and weight gain. Patient stated she is retaining water on legs, hands, arm, ankles and feet. HENT: Positive for ear pain and hearing loss. Cardiovascular: Positive for chest pain, irregular heartbeat, leg swelling and palpitations. Respiratory: Positive for cough and shortness of breath. Musculoskeletal: Positive for joint swelling. Neurological: Positive for dizziness. All other systems reviewed and are negative. [facility] Summary Purpose Family History No Family History Records FoundNo Family History Records Found Advance Directives No Advanced Directives Records FoundNo Advanced Directives Records Found Additional Source Comments INFORMATION SOURCE (unrecogn ized section and content) DATE CREATED AUTHOR 03/17/2023 [facility] DATE CREATED AUTHOR AUTHOR'S ORGANIZ ATION 11/07/2023 [facility] FOR RECORDS PERTAINING TO PATIENTS WHO ARE OR HAVE BEEN ENROLLED IN A CHEMICAL DEPENDENCY/SUBSTANCEABUSE PROGRAM, SOME INFORMATION MAY BE OMITTED. This clinical summary was aggregated from multiple sources. Caution should be exercised in using it in the provision of clinical care. This summary normalizes information from multiple sources, and as a consequence, information in this document may materially change the coding, format and clinical context of patient data. In addition, data may be omitted in some cases. CLINICAL DECISIONS SHOULD BE BASED ON THE PRIMARY CLINICAL RECORDS. [employer] provides no warranty or guarantee of the accuracy or completeness of information in this document.
[2023-12-13 11:10] LABS: Anion Gap 14.3; BUN Creatinine Ratio 20.9; Calcium 9.7 mg/dL (8.5-10.1); Carbon Dioxide 24.7 mmol/L (21.0-32.0); Chloride 105 mmol/L (98-107); Estimated GFR (African America >60 (>=60); Estimated GFR (Non-African Ame >60 (>=60); Glucose 100 mg/dL (74-106); Sodium 140 mmol/L (136-145)
== END 2023-12-13 08:44 | disposition home or self-care (01) ==
LOC: LAB 08:45
PROVIDERS: PCP Nurse Practitioner Family; Visit Provider Nurse Practitioner
DX: I50.33 Acute on chronic diastolic (congestive) heart failure (principal)
CPT/HCPCS: 36415; 80048

== ENCOUNTER 2024-02-18 06:39 | Outpatient (OUT) | payer MEDICARE, OTHER, SELFPAY ==
--- OUTSIDE RECORDS SUMMARY | 2024-02-18 06:43 | XMS_ITS | CCD ---
Author Organization [facility] Care Team Providers Care Right Of Way Buyer Name Role Phone LUCIE SUNY Admitting Unavailable SHRUTHI, GARCÍA Primary Care Unavailable [...] RICHMOND Primary Care Unavailable ZIEBER, DR LIZETT Calle Consulting Unavailable PAY ., DR ANDRES Consulting Unavailable ELIO, YESI Consulting Unavailable SHRUTHI, GARCÍA Primary Care Unavailable BARAZI, CONNIE Attending Unavailable BARAZI, CONNIE Consulting Unavailable BARAZI, CONNIE Admitting Unavailable JIL, FAHAD Referring Unavailable JIL, FAHAD Admitting Unavailable JIL, FAHAD Attending Unavailable JIL, FAHAD Attending Unavailable BARAZI, CONNIE Attending Unavailable BARAZI, CONNIE Attending Unavailable BARAZI, CONNIE Attending Unavailable BARAZI, CONNIE Attending Unavailable BARAZI, CONNIE Attending Unavailable BARAZI, CONNIE Referring Unavailable JIL, FAHAD Referring Unavailable JIL, FAHAD Attending Unavailable JIL, FAHAD Referring Unavailable JIL, FAHAD Referring Unavailable JIL, FAHAD Referring Unavailable JIL, FAHAD Referring Unavailable JIL, FAHAD Admitting Unavailable JIL, FAHAD Attending Unavailable Problems Active Problems Problem Classification Problem Date Documented Da [...] 02-13-2023 Chronic Other aftercare (1 source) Other predatory animal exterminator (current) drug therapy; Translations: [OTH INSTALLATION COORDINATOR CURRENT DRUG THERAPY] Onset: 02-25-2023 Episodic Other lower respiratory disease (1 source) Shortness of breath; Translations: [SHORTNESS OF BREATH] Onset: 02-13-2023 Episodic Other nutritional; endocrine; and metabolic disorders (1 source) Hypocalcemia; Translations: [HYPOCALCEMIA] Onset: 02-13-2023 Chronic Other screening for suspected conditions (not mental disorders or infectious disease) (1 source) Other specified abnormal findings of blood chemistry; Translations: [OTH SPEC ABNORMAL FINDINGS BLD CHEM] Onset: 02-13-2023 Episodic Pulmonary heart disease (1 source) Other pulmonary embolism without acute cor pulmonale; Translations: [OTH PULM EMBO W/O AC COR PULMONALE] Onset: 02-13-2023 Episodic Unclassified (3 sources) Other persistent atrial fibrillation; Translations: [OTHR PERSISTENT ATRIAL FIBRILLATION] Onset: 03-04-2023 Past or Other Problems Problem Classification Problem Date Documented Date Episodic/Chronic Other circulatory disease (2 sources) Personal history of other diseases of the circulatory system; Translations: [Personal history of other diseases of the circulatory system] Onset: 08-14-2023 Episodic Residual codes; unclassified (2 sources) Other specified postprocedural states; Translations: [Other specified postprocedural states] Onset: 08-14-2023 Episodic Results Test Name Value Interpretation Reference Range Facility Office Visiton 12-17-2023 Follow-up visit [id number] Mona Yanez 1955 F Date Provider Department Center 12/17/2023 AFHAD LACEY CARD [facility] No family history on file Level of Service:81050 [place] OFFICE/OUTPATIENT ESTABLISHED LOW MDM 20 MIN Normal [facility] Follow-Upon 10-29-2023 Follow-Up [id number] Mona Yanez 1955 F Date Provider Department Center 10/29/2023 1596-CONNIE SU CARD [facility] No family history on file Level of Service:34248 [place] OFFICE/OUTPATIENT ESTABLISHED MOD MDM 30 MIN Normal [facility] Telephoneon 08-26-2023 Telephone [id number] Mona Yanez 1955 F Date Provider Department Center 08/26/2023 JOANNA TYRONE [facility] No family history on file Normal [facility] HPon 08-14-2023 HP - Attestation signed by [...] hypertension. She used to be seen in [place] where she used to live for A-fib had a cardioversion in the past about 3 years ago and has not had issues since. She was taken off blood thinners at the time and was not on any antiarrhythmic medication. She was recently seen [facility] 02/08/2023 with symptoms of A-fib -she had felt SOB and felt like heart was racing and was concerned she was in A-fib. No cardioversion was attempted due to not being on blood thinners. [facility] started her on Cardizem and Eliquis , [...] chest pain, worseni (more content not included)... [facility] NURSNOTEon 08-14-2023 NURSNOTE Discharge instructions reviewed with patient daughter at bedside. All questions answered at this time Melida Hanna ANATOMIC PATHOLOGIST [facility] NURSNOTE Prescriptions given to family member to fill at local pharmacy Melida Hanna ANATOMIC PATHOLOGIST [facility] NURSNOTE EKG at bedside Melida Hanna ANATOMIC PATHOLOGIST [facility] POCT GLUCOSE METER UNSOLICIT ED RESULTSon 08-14-2023 Glucose [Mass/Vol] 110 mg/dL High 70-105 [facility] Comment on above: Order Comment: Waive d Testing in the ED is performed under the ED CLIA certificate #[id number]. Result Comment: ngro edward Performed By: #### L [id number] ####[facility] (BEAKER)[address] [place] [address] PROTIME-INRon 08-14-2023 INR IN PPP BY COAGULATION ASSAY 0.99 Normal 0.90-1.10 [facility] Comment on above: Result Comment: ACC P RECOMMENDED INR FOR WARFARIN THERAPY CONDITION [...] CHEST 1995;108:231S-246S. Performed By: #### L [id number] ####[facility] ([facility]AK[facility])[address] [place] [address] PROTHROMBIN TIME (PT) IN PPP BY COAGULATION ASSAY 13.1 Seconds Normal 12.3-14.8 [facility] Comment on above: Performed By: #### L [id number] ####[facility] (BEAKER)[address] [place] [address] [id number] 08-05-2023 [id number] ARRIVAL TIME GIVEN 0700 HOLD ELIQUIS X 48 HRS STOP 08/12 MEDICATIONS TO TAKE DAY OF SURGERY WITH SIP OF WATER METOPROLOL PT AGREES TO HAVE LABS DRAWN AT [facility] ORDERS FAXED IF YOU ARE GOING HOME AFTER YOUR SURGERY OR PROCEDURE, FOR YOUR SAFETY, YOUR SURGERY WILL BE CANCELLED IF BOTH OF THE FOLLOWING ARE NOT AVAILABLE: 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 Do not wear perfume, make-up, nail lithuanian, or lotions on the day of your [...] need to make any changes, please call [phone]. Notify your surgeon if you develop any illness such as a cold, cough, fever, sore throat or vomiting between now and your surgery. Thank you for entrusting us with your care. [facility] Surgical Services Team Normal [facility] Office Visiton 08-02-2023 Follow-up visit [id number] Mona Yanez 1955 F Date Provider Department Center 08/02/2023 Kasi6-CONNIE SU CARD [facility] No family history on file Level of Service:92824 [place] OFFICE/OUTPATIENT ESTABLISHED HIGH MDM 40-54 MIN Normal [facility] Orders Onlyon 07-05-2023 Orders Only [id number] Mona Yanez S 1955 [facility] 07/05/2023 CONNIE DOYLE JESUS Tiffani [facility] No family history on file [facility] Orders Onlyon 07-03-2023 Orders Only [id number] Mona Yanez S 1955 [facility] 07/03/2023 [id number] TORRE [facility] No family history on file [facility] Telemedicineon 2023 Telemedicine [id number] Mona Yanez S 1955 [facility] 2023 [facility]-FAHAD GARCÍA JESUS [facility] No family history on file Level of Service:41514 [place] PHYS/QHP TELEPHONE EVALUATION 21-[address] [facility] Office Visiton 05-22-2023 Follow-up visit [id number] Mona Yanez S 1955 [facility] 05/22/2023 CONNIE DOYLE JESUS [facility] No family history on file Level of Service:55818 [place] OFFICE/OUTPATIENT ESTABLISHED MOD MDM 30-39 MIN Reason for Visit and Comments: Follow-up [224029] [facility] Orders Onlyon 05-22-2023 Orders Only [id number] Mona Yanez Ginny 1955 [facility] 05/22/2023 [facility] No family history on file [facility] Shiv 04-17-2023 ANES - Attestation signed by Fahad [...] Procedure: Cardioversion - BECCA with DCCV Location: [facility] GLASSWARE FINISHER HOLDING ROOM / [facility] VASCULAR LAB (Cath) Providers: Fahad García MD Clinical information reviewed: Allergies Meds OB Status Physical Exam Airway Mallampati: II TM distance: >3 FB Neck ROM: full Cardiovascular Rhythm: irregular (-) murmur Dental Pulmonary Abdominal Anesthesia Plan other (Conscious sedation. ) Additional Equipment Requests Normal [facility] HPon 04-17-2023 - Attestation signed by Fahad [...] hypertension. She used to be seen in [place] where she used to live for [facility] had a cardioversion in the past about 3 years ago and has not had issues since. She was taken off blood thinners at the time and was not on any antiarrhythmic medication. She was recently seen in [place] [facility] 02/08/2023 with symptoms of A-fib -she had felt SOB and felt like heart was racing and was concerned [facility]. No cardioversion was attempted due to not being on blood thinners. [place] started her on Cardizem and Eliquis , [...] this visit. Assessment/Plan Persistent atrial fibrillation - [id number] 5 for age, gender, hypertension, PE - [...] continue Eliquis 5 mg twice daily Normal [facility] NURSNOTEon 04-17-2023 NURSNOTE RN educated pt on d/ c instructions. RN encouraged pt to voice any questions or concerns. Pt verbalizes no questions or concerns at this time. Pt was wheeled off of unit with all of belongings. Normal [facility] ECHOCARDIO M/2D COMPLETEon 0 03-05-2023 ECHOCARDIO M/2D COMPLETE Patient: MONA YANEZ Exam Date: 03/05/2023 : 1955 Gender:F Ordering : CONNIE SU Admission #: [id number] Family : Order #: [id number] CLICK HERE TO VIEW EXAM ECHOCARDIOGRAM REPORT [...] Asif Connelly M.D. on 03/05/2023 at 17:41 [facility] Office Visiton 03-05-2023 Follow-up visit [id number] Mona Yanez 1955 F Date Provider Department Center 03/05/2023 Sree-CONNIE SU [facility] No family history on file Level of Service:31701 IA OFFICE/OUTPATIENT ESTABLISHED MOD MDM 30-39 MIN Reason for Visit and Comments: Atrial Fibrillation [80] Congestive Heart Failure [127] Normal [facility] PROF CHEM 8 (BAS METB)on Anion gap [Moles/Vol] 12.2 mmol/L Normal [facility] Comment on above: Performed By: #### D DIM, PT, PTT #### [facility] [address] [place] [address] Dr. Balwinder Ramirez Calcium [Mass/Vol] 10.6 mg/dL Critically high 8.5-10.1 [facility] Comment on above: Performed By: #### D DIM, PT, PTT #### [facility] [address] [place] [address] Dr. Balwinder Ramirez Chloride [Moles/Vol] 107 mmol/L Normal 98-107 [facility] Comment on above: Performed By: #### D DIM, PT, PTT #### [facility] [address] [place] [address] Dr. Balwinder Ramirez CO2 [Moles/Vol] 28.4 mmol/L Normal 21.0-32.0 [facility] Comment on above: Performed By: #### D DIM, PT, PTT #### [facility] [address] [place] [address] Dr. Balwinder Ramirez Creatinine [Mass/Vol] 1.06 mg/dL Critically high 0.55-1.02 [facility] Comment on above: Performed By: #### D DIM, PT, PTT #### [facility] [address] [place] [address] Dr. Balwinder Ramirez EGFR-AF CONGOLESE >60 Normal >=60 [facility] Comment on above: Performed By: #### D DIM, PT, PTT #### [facility] [address] [place] [address] Dr. Balwinder Ramirez EGFR-NON AF CONGOLESE 52 mL/min/1.73m2 Critically low >=60 [facility] Comment on above: Performed By: #### D DIM, PT, PTT #### [facility] [address] [place] [address] Dr. Balwinder Ramirez Glucose [Mass/Vol] 115 mg/dL Critically high 74-106 [facility] Comment on above: Performed By: #### D DIM, PT, PTT #### [facility] [address] [place] [address] Dr. Balwinder Ramirez Potassium [Moles/Vol] 4.6 mmol/L Normal 3.5-5.1 [facility] Comment on above: Performed By: #### D DIM, PT, PTT #### [facility] [address] [place] [address] Dr. Balwinder Ramirez Sodium [Moles/Vol] 143 mmol/L Normal 136-145 [facility] Comment on above: Performed By: #### D DIM, PT, PTT #### [facility] [address] [place] [address] Dr. Balwinder Ramirez Urea nitrogen [Mass/Vol] 18.0 mg/dL Normal 7.0-18.0 [facility] Comment on above: Performed By: #### D DIM, PT, PTT #### [facility] [address] [place] [address] Dr. Balwinder Ramirez Urea nitrogen/Creatinine [Mass ratio] 17.0 mg/mg Normal [facility] Comment on above: Performed By: #### D DIM, PT, PTT #### [facility] [address] [place] [address] HEAD WO CONon [...] ROLAN GONZALEZ Date: 2023-02-24 13:22 Normal [facility] Office Visiton 02-22-2023 Follow-up visit [id number] Mona Yanez 1955 F Date Provider Department Center 02/22/2023 Sree-CONNIE SU CARD [facility] No family history on file Level of Service:23982 [place] OFFICE/OUTPATIENT NEW MODERATE MDM 45-59 MINUTES Reason for Visit and Comments: Atrial Fibrillation [80] Establish Care [42] Normal [facility] CBC AUTO DIFFon 02-09-2023 BASO # 0.1 103/ul Normal 0.0-0.1 [facility] Comment on above: Performed By: #### D DIM, PT, PTT #### [facility] [address] [address] [address] Balwinder Ramirez Basophils/100 WBC (Bld) 0.6 % Normal 0.2-2.0 [facility] Comment on above: Performed By: #### D DIM, PT, PTT #### [facility] [address] [address] [address] Balwinder Ramirez EO # 0.1 103/ul Normal 0.0-0.7 [facility] Comment on above: Performed By: #### D DIM, PT, PTT #### [facility] [address] [address] [address] Balwinder Ramirez Eosinophils/100 WBC (Bld) 1.2 % Normal 0.9-7.0 [facility] Comment on above: Performed By: #### D DIM, PT, PTT #### [facility] [address] [address] [address] Balwinder Ramirez Erythrocyte distribution width (RBC) [Ratio] 13.8 % Normal 11.0-15.0 [facility] Comment on above: Performed By: #### D DIM, PT, PTT #### [facility] [address] [address] [address] Balwinder Ramirez Hematocrit (Bld) [Volume fraction] 46.6 % Normal 36.0-48.0 [facility] Comment on above: Performed By: #### D DIM, PT, PTT #### [facility] [address] [place] [address] Dr. Balwinder Ramirez Hemoglobin (Bld) [Mass/Vol] 15.3 g/dL Normal 12.0-16.0 [facility] Comment on above: Performed By: #### D DIM, PT, PTT #### [facility] [address] [place] [address] Dr. Balwinder Ramirez IG # 0.03 10e3/ul Normal 0.00-0.03 [facility] Comment on above: Performed By: #### D DIM, PT, PTT #### [facility] [address] [place] [address] Dr. Balwinder Ramirez IG % 0.3 % Normal 0.0-0.5 [facility] Comment on above: Performed By: #### D DIM, PT, PTT #### [facility] [address] [place] [address] Dr. Balwinder Ramirez LYMPH # 1.9 103/ul Normal 1.2-3.8 [facility] Comment on above: Performed By: #### D DIM, PT, PTT #### [facility] [address] [place] [address] Dr. Balwinder Ramirez Lymphocytes/100 WBC (Bld) 18.0 % Critically low 20.5-60.0 [facility] Comment on above: Performed By: #### D DIM, PT, PTT #### [facility] [address] [place] [address] Dr. Balwinder Ramirez MANUAL DIFF REQ NO Normal [facility] Comment on above: Performed By: #### D DIM, PT, PTT #### [facility] [address] [place] [address] Dr. Balwinder Ramirez MCH (RBC) [Entitic mass] 28.7 pg Normal 26.7-34.0 [facility] Comment on above: Performed By: #### D DIM, PT, PTT #### [facility] [address] [place] [address] Dr. Balwinder Ramirez MCHC (RBC) [Mass/Vol] 32.8 g/dL Normal 29.9-35.2 [facility] Comment on above: Performed By: #### D DIM, PT, PTT #### [facility] [address] [place] [address] Dr. Balwinder Ramirez MCV (RBC) [Entitic vol] 87.3 fL Normal 81.0-99.0 [facility] Comment on above: Performed By: #### D DIM, PT, PTT #### [facility] [address] [place] [address] Dr. Balwinder Ramirez MONO # 0.8 103/ul Normal 0.3-0.8 [facility] Comment on above: Performed By: #### D DIM, PT, PTT #### [facility] [address] [place] [address] Dr. Balwinder Ramirez Monocytes/100 WBC (Bld) 7.5 % Normal 1.7-12.0 [facility] Comment on above: Performed By: #### D DIM, PT, PTT #### [facility] [address] [place] [address] Dr. Balwinder Ramirez NEUT # 7.8 103/ul Critically high 1.4-6.5 [facility] Comment on above: Performed By: #### D DIM, PT, PTT #### [facility] [address] [place] [address] Dr. Balwinder Ramirez Neutrophils/100 WBC (Bld) 72.4 % Normal 43.0-75.0 [facility] Comment on above: Performed By: #### D DIM, PT, PTT #### [facility] [address] [place] [address] Dr. Balwinder Ramirez Platelet mean volume (Bld) [Entitic vol] 9.6 fL Normal 9.5-13.5 [facility] Comment on above: Performed By: #### D DIM, PT, PTT #### [facility] [address] [place] [address] Dr. Balwinder Ramirez PLT 158 103/ul Normal 150-450 [facility] Comment on above: Performed By: #### D DIM, PT, PTT #### [facility] [address] [address] [address] Balwinder Ramirez RBC 5.34 106/ul Normal 4.20-5.40 [facility] Comment on above: Performed By: #### D DIM, PT, PTT #### [facility] [address] [address] [address] Balwinder Ramirez WBC 10.8 103/ul Normal 4.0-11.0 [facility] Comment on above: Performed By: #### D DIM, PT, PTT #### [facility] [address] [address] [address] Balwinder Ramirez PROF 14(COMP METB)on 023 Albumin [Mass/Vol] 3.5 g/dL Normal 3.4-5.0 [facility] Comment on above: Performed By: #### D DIM, PT, PTT #### [facility] [address] [place] [address] Dr. Balwinder Ramirez Albumin/Globulin [Mass ratio] 1.2 {ratio} Normal [facility] Comment on above: Performed By: #### D DIM, PT, PTT #### [facility] [address] [address] [address] Balwinder Ramirez ALP [Catalytic activity/Vol] 117 U/L Critically high 46-116 [facility] Comment on above: Performed By: #### D DIM, PT, PTT #### [facility] [address] [address] [address] Balwinder Ramirez ALT [Catalytic activity/Vol] 19 U/L Normal 14-59 [facility] Comment on above: Performed By: #### D DIM, PT, PTT #### [facility] [address] [address] [address] Balwinder Ramirez Anion gap [Moles/Vol] 13.0 mmol/L Normal [facility] Comment on above: Performed By: #### D DIM, PT, PTT #### [facility] [address] [address] [address] Balwinder Ramirez AST [Catalytic activity/Vol] 12 U/L Critically low 15-37 [facility] Comment on above: Performed By: #### D DIM, PT, PTT #### [facility] [address] [address] [address] Balwinder Ramirez Bilirubin [Mass/Vol] 0.9 mg/dL Normal 0.2-1.0 [facility] Comment on above: Performed By: #### D DIM, PT, PTT #### [facility] [address] [place] [address] Dr. Balwinder Ramirez Calcium [Mass/Vol] 9.5 mg/dL Normal 8.5-10.1 [facility] Comment on above: Performed By: #### D DIM, PT, PTT #### [facility] [address] [place] [address] Dr. Balwinder Ramirez Chloride [Moles/Vol] 108 mmol/L Critically high 98-107 [facility] Comment on above: Performed By: #### D DIM, PT, PTT #### [facility] [address] [place] [address] Dr. Balwinder Ramirez CO2 [Moles/Vol] 23.9 mmol/L Normal 21.0-32.0 [facility] Comment on above: Performed By: #### D DIM, PT, PTT #### [facility] [address] [place] [address] Dr. Balwinder Ramirez Creatinine [Mass/Vol] 0.76 mg/dL Normal 0.55-1.02 [facility] Comment on above: Performed By: #### D DIM, PT, PTT #### [facility] [address] [place] [address] Dr. Balwinder Ramirez EGFR-AF CONGOLESE >60 Normal >=[address] [facility] Comment on above: Performed By: #### D DIM, PT, PTT #### [facility] [address] [place] [address] Dr. Balwinder Ramirez EGFR-NON AF CONGOLESE >60 Normal >=60 [facility] Comment on above: Performed By: #### D DIM, PT, PTT #### [facility] [address] [place] [address] Dr. Balwinder Ramirez Globulin (S) [Mass/Vol] 2.9 g/dL Normal [facility] Comment on above: Performed By: #### D DIM, PT, PTT #### [facility] [address] [place] [address] Dr. Balwinder Ramirez Glucose [Mass/Vol] 128 mg/dL Critically high 74-106 [facility] Comment on above: Performed By: #### D DIM, PT, PTT #### [facility] [address] [place] [address] Dr. Balwinder Ramirez Potassium [Moles/Vol] 3.9 mmol/L Normal 3.5-5.1 [facility] Comment on above: Performed By: #### D DIM, PT, PTT #### [facility] [address] [place] [address] Dr. Balwinder Ramirez Protein [Mass/Vol] 6.4 g/dL Normal 6.4-8.2 [facility] Comment on above: Performed By: #### D DIM, PT, PTT #### [facility] [address] [place] [address] Dr. Balwinder Ramirez Sodium [Moles/Vol] 141 mmol/L Normal 136-145 [facility] Comment on above: Performed By: #### D DIM, PT, PTT #### [facility] [address] [place] [address] Dr. Balwinder Ramirez Urea nitrogen [Mass/Vol] 16.0 mg/dL Normal 7.0-18.0 [facility] Comment on above: Performed By: #### D DIM, PT, PTT #### [facility] [address] [place] [address] Dr. Balwinder Ramirez Urea nitrogen/Creatinine [Mass ratio] 21.1 mg/mg Normal [facility] Comment on above: Performed By: #### D DIM, PT, PTT #### [facility] [address] [place] [address] Dr. Balwinder Ramirez BNPon 02-08-2023 Natriuretic peptide B (Bld) [Mass/Vol] 637.0 pg/mL Normal <=900.0 [facility] Comment on above: Performed By: #### L IPA, TSH, CK, CMP, BNP #### [facility] [address] [place] [address] Dr. Balwinder Ramirez CBC AUTO DIFFon 02-08-2023 BASO # 0.1 103/ul Normal 0.0-0.1 [facility] Comment on above: Performed By: #### D DIM, PT, PTT #### [facility] [address] [place] [address] Dr. Balwinder Ramirez Basophils/100 WBC (Bld) 0.7 % Normal 0.2-2.0 [facility] Comment on above: Performed By: #### D DIM, PT, PTT #### [facility] [address] [place] [address] Dr. Balwinder Ramirez EO # 0.2 103/ul Normal 0.0-0.7 [facility] Comment on above: Performed By: #### D DIM, PT, PTT #### [facility] [address] [place] [address] Dr. Balwinder Ramirez Eosinophils/100 WBC (Bld) 2.1 % Normal 0.9-7.0 [facility] Comment on above: Performed By: #### D DIM, PT, PTT #### [facility] [address] [place] [address] Dr. Balwinder Ramirez Erythrocyte distribution width (RBC) [Ratio] 13.8 % Normal 11.0-15.0 [facility] Comment on above: Performed By: #### D DIM, PT, PTT #### [facility] [address] [place] [address] Dr. Balwinder Ramirez Hematocrit (Bld) [Volume fraction] 47.0 % Normal 36.0-48.0 [facility] Comment on above: Performed By: #### D DIM, PT, PTT #### [facility] [address] [place] [address] Dr. Balwinder Ramirez Hemoglobin (Bld) [Mass/Vol] 15.5 g/dL Normal 12.0-16.0 [facility] Comment on above: Performed By: #### D DIM, PT, PTT #### [facility] [address] [place], [place] [id number] Dr. Balwinder Ramirez IG # 0.02 10e3/ul Normal 0.00-0.03 [facility] Comment on above: Performed By: #### D DIM, PT, PTT #### [facility] [address] [place] [address] Dr. Balwinder Ramirez IG % 0.2 % Normal 0.0-0.5 [facility] Comment on above: Performed By: #### D DIM, PT, PTT #### [facility] [address] [place] [address] Dr. Balwinder Ramirez LYMPH # 2.4 103/ul Normal 1.2-3.8 [facility] Comment on above: Performed By: #### D DIM, PT, PTT #### [facility] [address] [place] [address] Dr. Balwinder Ramirez Lymphocytes/100 WBC (Bld) 27.1 % Normal 20.5-60.0 [facility] Comment on above: Performed By: #### D DIM, PT, PTT #### [facility] [address] [place] [address] Dr. Balwinder Ramirez MANUAL DIFF REQ NO Normal [facility] Comment on above: Performed By: #### D DIM, PT, PTT #### [facility] [address] [place] [address] Dr. Balwinder Ramirez MCH (RBC) [Entitic mass] 28.5 pg Normal 26.7-34.0 [facility] Comment on above: Performed By: #### D DIM, PT, PTT #### [facility] [address] [place] [address] Dr. Balwinder Ramirez MCHC (RBC) [Mass/Vol] 33.0 g/dL Normal 29.9-35.2 [facility] Comment on above: Performed By: #### D DIM, PT, PTT #### [facility] [address] [place] [address] Dr. Balwinder Ramirez MCV (RBC) [Entitic vol] 86.4 fL Normal 81.0-99.0 [facility] Comment on above: Performed By: #### D DIM, PT, PTT #### [facility] [address] [place] [address] Dr. Balwinder Ramirez MONO # 0.6 103/ul Normal 0.3-0.8 [facility] Comment on above: Performed By: #### D DIM, PT, PTT #### [facility] [address] [place] [address] Dr. Balwinder Ramirez Monocytes/100 WBC (Bld) 6.5 % Normal 1.7-12.0 [facility] Comment on above: Performed By: #### D DIM, PT, PTT #### [facility] [address] [place] [address] Dr. Balwinder Ramirez NEUT # 5.5 103/ul Normal 1.4-6.5 [facility] Comment on above: Performed By: #### D DIM, PT, PTT #### [facility] [address] [place] [address] Dr. Balwinder Ramirez Neutrophils/100 WBC (Bld) 63.4 % Normal 43.0-75.0 [facility] Comment on above: Performed By: #### D DIM, PT, PTT #### [facility] [address] [place] [address] Dr. Balwinder Ramirez Platelet mean volume (Bld) [Entitic vol] 9.8 fL Normal 9.5-13.5 [facility] Comment on above: Performed By: #### D DIM, PT, PTT #### [facility] [address] [place] [address] Dr. Balwinder Rmairez PLT 171 103/ul Normal 150-450 [facility] Comment on above: Performed By: #### D DIM, PT, PTT #### [facility] [address] [place] [address] Dr. Balwinder Ramirez RBC 5.44 106/ul Critically high 4.20-5.[address] [facility] Comment on above: Performed By: #### D DIM, PT, PTT #### [facility] [address] [place] [address] Dr. Balwinder Ramirez WBC 8.7 103/ul Normal 4.0-11.0 [facility] Comment on above: Performed By: #### D DIM, PT, PTT #### [facility] [address] [place], [place] [address] Dr. Balwinder Ramirez CPKon 02-08-2023 CK [Catalytic activity/Vol] 92 U/L Normal 26-192 [facility] Comment on above: Performed By: #### L IPA, TSH, CK, CMP, BNP #### [facility] [address] [place], [place] [address] Dr. Balwinder Ramirez CTA CHEST WO W [...] YESI BALLARD Date: 2023-02-08 17:33 Normal [facility] D-DIMERon 02-08-2023 D-DIMER 2.48 mg/L FEU Critically high <=0.59 [facility] Comment on above: Performed By: #### D DIM, PT, PTT #### [facility] [address] [place] [address] Dr. Balwinder Ramirez D-DIMER COMMENTS SEE BELOW Normal [facility] Comment on above: Result Comment: Incr eases [...] By: #### D DIM, PT, PTT #### [facility] [address] [address] [address] Balwinder Ramirez LIPASEon 02-08-2023 Lipase [Catalytic activity/Vol] 167.0 U/L Normal 73.0-393.0 [facility] Comment on above: Performed By: #### L IPA, TSH, CK, CMP, BNP #### [facility] [address] [address] [address] Balwinder Ramirez PROF 14(COMP METB)on 023 Albumin [Mass/Vol] 3.9 g/dL Normal 3.4-5.0 [facility] Comment on above: Performed By: #### L IPA, TSH, CK, CMP, BNP #### [facility] [address] [address] [address] Balwinder Ramirez Albumin/Globulin [Mass ratio] 1.0 {ratio} Normal [facility] Comment on above: Performed By: #### L IPA, TSH, CK, CMP, BNP #### [facility] [address] [address] [address] Balwinder Ramirez ALP [Catalytic activity/Vol] 146 U/L Critically high 46-116 [facility] Comment on above: Performed By: #### L IPA, TSH, CK, CMP, BNP #### [facility] [address] [place] [address] Dr. Balwinder Ramirez ALT [Catalytic activity/Vol] 24 U/L Normal 14-59 [facility] Comment on above: Performed By: #### L IPA, TSH, CK, CMP, BNP #### [facility] [address] [address] [address] Balwinder Ramirez Anion gap [Moles/Vol] 13.3 mmol/L Normal [facility] Comment on above: Performed By: #### L IPA, TSH, CK, CMP, BNP #### [facility] [address] [address] [address] Balwinder Ramirez AST [Catalytic activity/Vol] 19 U/L Normal 15-37 [facility] Comment on above: Performed By: #### L IPA, TSH, CK, CMP, BNP #### [facility] [address] [address] [address] Balwinder Ramirez Bilirubin [Mass/Vol] 0.4 mg/dL Normal 0.2-1.0 [facility] Comment on above: Performed By: #### L IPA, TSH, CK, CMP, BNP #### [facility] [address] [address] [address] Balwinder Ramirez Calcium [Mass/Vol] 10.7 mg/dL Critically high 8.5-10.1 [facility] Comment on above: Performed By: #### L IPA, TSH, CK, CMP, BNP #### [facility] [address] [address] [address] Balwinder Ramirez Chloride [Moles/Vol] 108 mmol/L Critically high 98-107 [facility] Comment on above: Performed By: #### L IPA, TSH, CK, CMP, BNP #### [facility] [address] [address] [address] Balwinder Ramirez CO2 [Moles/Vol] 24.4 mmol/L Normal 21.0-32.0 [facility] Comment on above: Performed By: #### L IPA, TSH, CK, CMP, BNP #### [facility] [address] [place] [address] Dr. Balwinder Ramirez Creatinine [Mass/Vol] 0.97 mg/dL Normal 0.55-1.02 [facility] Comment on above: Performed By: #### L IPA, TSH, CK, CMP, BNP #### [facility] [address] [place] [address] Dr. Balwinder Ramirez EGFR-AF CONGOLESE >60 Normal >=60 [facility] Comment on above: Performed By: #### L IPA, TSH, CK, CMP, BNP #### [facility] [address] [place] [address] Dr. Balwinder Ramirez EGFR-NON AF CONGOLESE 58 mL/min/1.73m2 Critically low >=60 [facility] Comment on above: Performed By: #### L IPA, TSH, CK, CMP, BNP #### [facility] [address] [place] [address] Dr. Balwinder Ramirez Globulin (S) [Mass/Vol] 3.9 g/dL Normal [facility] Comment on above: Performed By: #### L IPA, TSH, CK, CMP, BNP #### [facility] [address] [place] [address] Dr. Balwinder Ramirez Glucose [Mass/Vol] 113 mg/dL Critically high 74-106 [facility] Comment on above: Performed By: #### L IPA, TSH, CK, CMP, BNP #### [facility] [address] [address] [address] Balwinder Ramirez Potassium [Moles/Vol] 3.7 mmol/L Normal 3.5-5.1 [facility] Comment on above: Performed By: #### L IPA, TSH, CK, CMP, BNP #### [facility] [address] [address] [address] Balwinder Ramirez Protein [Mass/Vol] 7.8 g/dL Normal 6.4-8.2 [facility] Comment on above: Performed By: #### L IPA, TSH, CK, CMP, BNP #### [facility] [address] [address] [address] Balwinder Ramirez Sodium [Moles/Vol] 142 mmol/L Normal 136-145 [facility] Comment on above: Performed By: #### L IPA, TSH, CK, CMP, BNP #### [facility] [address] [address] [address] Balwinder Ramirez Urea nitrogen [Mass/Vol] 25.0 mg/dL Critically high 7.0-18.0 [facility] Comment on above: Performed By: #### L IPA, TSH, CK, CMP, BNP #### [facility] [address] [place] [address] Dr. Balwinder Ramirez Urea nitrogen/Creatinine [Mass ratio] 25.8 mg/mg Normal [facility] Comment on above: Performed By: #### L IPA, TSH, CK, CMP, BNP #### [facility] [address] [place] [address] Dr. Balwinder Ramirez PROTIMEon 02-08-2023 INR Coag (PPP) [Relative time] 0.94 {INR} Normal [facility] Comment on above: Performed By: #### D DIM, PT, PTT #### [facility] [address] [place] [address] Dr. Balwinder Ramirez INR GUIDELINES SEE BELOW Normal [facility] Comment on above: Result Comment: COLLEEN RED INR: 2.0 - 3.0 CONDITIONS NOT LISTED BELOW 2.5 - 3.5 FOR PROSTHETIC HEART VALVE REPLACEMENT 2.5 - 3.5 RECURRENT THROMBOSIS Performed By: #### D DIM, PT, PTT #### [facility] [address] [place] [address] Dr. Balwinder Ramirez PT Coag (PPP) [Time] 10.0 s Normal 9.0-11.6 [facility] Comment on above: Performed By: #### D DIM, PT, PTT #### [facility] [address] [address] [address] Balwinder Ramirez PTTon 02-08-2023 aPTT Coag (Bld) [Time] 23.2 s Normal 22.3-36.2 [facility] Comment on above: Performed By: #### D DIM, PT, PTT #### [facility] [address] [place] [address] Dr. Balwinder Ramirez TROPONIN, HIGH SENSITIVITYon 02-08-2023 HSTROP 28.4 pg/mL Normal 4.0-51.3 [facility] Comment on above: Result Comment: CUT- OFF POINTS HAVE BEEN ESTABLISHED BASED ON THE FOURTH UNIVERSAL DEFINITIONS OF MYOCARDIAL INFARCTION. THE UPPER REFERENCE LIMIT (URL) OF TROPONIN, DEFINED THE 99TH PERCENTILE OF cTnI DISTRIBUTION IN A REFERENCE POPULATION, HAS BEEN CONFIRMED THE DECISION THRESHOLD FOR AR DIAGNOSIS. Performed By: #### D DIM, PT, PTT #### [facility] [address] [place] [address] Dr. Balwinder Ramirez TSHon 02-08-2023 TSH 1.650 uIU/mL Normal 0.358-3.740 [facility] Comment on above: Performed By: #### L IPA, TSH, CK, CMP, BNP #### [facility] [address] [place] [address] Dr. Balwinder Ramirez XR CHEST 1 Von [...] by: LIZETT AVALOS Date: 2023-02-08 14:51 Normal [facility] Encounters Encounter Date Encounter Type Care Provider Facility Start: 12-17-2023 End: 12-17-2023 ambulatory [facility] Start: 10-29-2023 End: 10-29-2023 ambulatory [facility] Start: 08-14-2023 ambulatory [facility] Start: 08-14-2023 ambulatory [facility] Start: 08-14-2023 End: 08-14-2023 ambulatory [facility] Start: 08-02-2023 End: 08-02-2023 ambulatory [facility] Start: 07-03-2023 End: 07-04-2023 ambulatory [facility] Start: 2023 End: 06-05-2023 ambulatory [facility] Start: 05-22-2023 End: 05-22-2023 ambulatory [facility] Start: 04-17-2023 ambulatory [facility] Start: 04-17-2023 End: 04-17-2023 ambulatory [facility] Start: 03-05-2023 End: 03-06-2023 ambulatory GARCÍA HAWKINS Facility:[facility] Start: 03-01-2023 ambulatory CONNIE SU Facility:[facility] Start: 02-27-2023 End: 03-06-2023 ambulatory GARCÍA HAWKINS Facility:[facility] Start: 02-24-2023 End: 02-24-[address] ZAFAR KIM Facility:[facility] Start: 02-22-2023 End: 02-22-2023 ambulatory [facility] Start: 02-08-2023 End: 02-09-[address] REBECCA AC . Facility:[facility] Payers Date Payer Category Payer Unknown [id number] 1957 Medicare [id number] 1957 Unknown [id number] 1955 Unknown [id number] [id number] [id number] 1955 Unknown [id number] 2.16.84 [id number] 1957 Unknown [id number] 2.16.84 [id number] 1957 Unknown [id number] 2.16.84 [id number] 1957 Unknown [id number] 2.16.84 [id number] Clinical Notes 02-22-2023 to 12-17-2023 Note Date & Type Note Facility 12-17-2023 Note [facility] Consult Note Reason for visit: afib, s/p DCCV unsuccessful on amiodarone , afib ablation PVI/post box iso/subtrate/CFAE/CTI . She feels energetic in sinus and is doing good. Pulse check : SR. 12/17/23 Patient here for 6 week follow up medication change. Connie Su CNP stopped lasix and started Farxiga at last apt. She said she feels a lot better and she's lost 12#. Denies chest pain, SOB, palpitations, and bleeding on Eliquis. 11/06/23: ME[employer]ONER she is here for 1 month follow-up s/p PVI/posterior box isolation/substrate/CFAE with CTI ablation she been feeling great since ablation No complaints of chest pain, shortness of breath, MONREAL, LE edema she states she felt very well about 3 to 4 weeks after starting Farxiga and then stopped it thinking she did not need it. she is still requiring Lasix 20 mg [...] hypertension. She used to be seen in [place] where she used to live for A-fib had a cardioversion in the past about 3 years ago and has not had issues since. She was taken off blood thinners at the time and was not on any antiarrhythmic medication. She was recently seen in [place] [facility] 02/08/2023 with symptoms of A-fib -she had felt SOB and felt like heart was racing and was concerned she was in A-fib. No cardioversion was attempted due to not being on blood thinners. [place] started her on Cardizem and Eliquis , [...] Not on file Alcohol Use: Not on (more content not included)... [facility] 10-29-2023 Note [facility] Consult Note Reason [...] hypertension. She used to be seen in [place] where she used to live for A-fib had a cardioversion in the past about 3 years ago and has not had issues since. She was taken off blood thinners at the time and was not on any antiarrhythmic medication. She was recently seen in [place] [facility] 02/08/2023 with symptoms of A-fib -she had felt SOB and felt like heart was racing and was concerned she was in A-fib. No cardioversion was attempted due to not being on blood thinners. [place] started her on Cardizem and Eliquis , [...] Not on file (more content not included)... [facility] 10-29-2023 Note Patient here for 2 m o follow up afib ablation. She does feel better s/p ablation. Denies chest pain, SOB, lightheadedness/syncope, palpitations, and bleeding on Eliquis. Says she doesn't feel like her heart beats the same as it did . Review of Systems Constitutional: Positive for malaise/fatigue. Cardiovascular: Positive for leg swelling. All other systems reviewed and are negative. [facility] 08-14-2023 Note Patient: Mona Yanez Procedure Summary Date: 08/14/23 Room / Location: [facility] / [facility] (Cath) Anesthesia Start: 844 Anesthesia Stop: 125 Procedure: Ablation atrial fibrillation Diagnosis: Persistent atrial fibrillation (CMS/HCC) (Persistent atrial fibrillation (CMS/HCC) [I48.19]) Providers: Fahad García MD Responsible Provider: Angeles aCmeron MD Anesthesia Type: general ASA Status: 4 [...] no known notable events for this encounter. [facility] 08-14-2023 Note Patient: Mona Yanez Procedure Summary Date: 08/14/23 Room / Location: [facility] / [facility] (Cath) Anesthesia Start: 844 Anesthesia Stop: Procedure: Ablation atrial fibrillation Diagnosis: Persistent atrial fibrillation (CMS/HCC) (Persistent atrial fibrillation (CMS/HCC) [I48.19]) Providers: Fahad García MD Responsible Provider: Angeles Cameron MD Anesthesia Type: general ASA Status: 4 Anesthesia Post Transport Note Transport to: PACU O2 Route: room air Patient Monitor: direct observation Transport: uneventful Patient condition is: stable [facility] 08-14-2023 Note ATRIAL FIBRILLATION ABLATION PROCEDURE NOTE DATE OF PROCEDURE: 08/14/2023 PERFORMING PHYSICIAN: Dr. Fahad García ESCALATOR CONSTRUCTOR: Dr Ross Montejo CONSENT: Patient NAME OF [...] hypertension. She used to be seen in [place] where she used to live and had a cardioversion in the past about 3 years ago and has not had issues since. She was taken off blood thinners at the time and was not on any antiarrhythmic medication. She was recently seen in [place] [facility] 02/08/2023 with symptoms of A-fib -she [...] ThermoCool SF Bi-Directional over SL1/ Vizigo, SL1: Pentaray, CS Catheter (EZ Steer). 9F: ICE catheter. Following [...] Coumadin ridge. Esophagus was mapped using the [employer] 3D mapping software and noted to be [...] So I d (more content not included)... [facility] 08-14-2023 Note Arterial Line: Date/Time: 08/14/2023 8:15 [...] midazolam (VERSED) IV, 2 mg Staffing Performed: resident/ORTHODONTIST ASSISTANT/CAA Anesthesiologist: Angeles Cameron MD Resident/ORTHODONTIST ASSISTANT: Dilip Feliciano MD Performed by: Dilip Feliciano MD Authorized by: Angeles Cameron MD [facility] 08-14-2023 Note Airway Date/Time: 08/14/2023 8:59 AM Urgency: elective Airway not difficult General Information and Staff Patient location during procedure: [place] Anesthesiologist: Angeles Cameron MD Resident/ORTHODONTIST ASSISTANT/CAA: Dilip Feliciano MD Performed: anesthesiologist and other [...] 1 Number of other approaches attempted: 0 [facility] 08-14-2023 Note Patient: Mona Yanez Procedure Information Date/Time: 08/14/23829 Procedure: Ablation atrial fibrillation Location: [facility] / [facility] (Cath) Providers: Fahad García MD [...] with attending and resident. Additional Equipment Requests [facility] 08-02-2023 Note Patient here prior t o afib ablation, scheduled for 08/14/[address] García. Still denies chest pain, lightheadedness, palpitations, and bleeding on Eliquis. Review of Systems Constitutional: Positive for malaise/fatigue. Cardiovascular: Positive for dyspnea on exertion. Respiratory: Positive for wheezing. All other systems reviewed and are negative. [facility] 08-02-2023 Note [facility] Consult Note Reason for visit: afib, [...] hypertension. She used to be seen in [place] where she used to live for A-fib had a cardioversion in the past about 3 years ago and has not had issues since. She was taken off blood thinners at the time and was not on any antiarrhythmic medication. She was recently seen in [place] [facility] 02/08/2023 with symptoms of A-fib -she had felt SOB and felt like heart was racing and was concerned she was in A-fib. No cardioversion was attempted due to not being on blood thinners. [place] started her on Cardizem and Eliquis , [...] and at bedtim (more content not included)... [facility] 07-05-2023 Note Afib ablation becca order [facility] 2023 Note [facility] Date of Telehealth Visit: 06/04/23 The patient was notified that using 3rd republican telecommunication application (e.g., [employer]) is not HIPPA compliant and may carry some privacy risks. Yes The visit was conducted [id number] with the use of audio and video technology [email or web address] between patient and provider for a virtual [...] hypertension. She used to be seen in [place] where she used to live for A-fib had a cardioversion in the past about 3 years ago and has not had issues since. She was taken off blood thinners at the time and was not on any antiarrhythmic medication. She was recently seen in [facility] 02/08/2023 with symptoms of A-fib -she had felt SOB and felt like heart was racing and was concerned she was in A-fib. No cardioversion was attempted due to not being on blood thinners. [place] started her on Cardizem and Eliquis , [...] Postmenopausal Smoking Stat (more content not included)... [facility] 05-22-2023 Note [facility] Note Reason [...] hypertension. She used to be seen in [place] where she used to live for A-fib had a cardioversion in the past about 3 years ago and has not had issues since. She was taken off blood thinners at the time and was not on any antiarrhythmic medication. She was recently seen in [facility] 02/08/2023 with symptoms of A-fib -she had felt SOB and felt like heart was racing and was concerned she was in A-fib. No cardioversion was attempted due to not being on blood thinners. [place] started her on Cardizem and Eliquis , [...] varicosities, no disc (more content not included)... [facility] 04-17-2023 Note DIRECT CARDIOVERSION PROCEDURE NOTE Date: 04/17/23 Type of procedure: DC Cardioversion. Performed by: Fahad García MD ESCALATOR CONSTRUCTOR: Dr Summer Rea Informed consent: Signed by patient. Indication: 67 y.o. year old with past medical history of A-fib with history of cardioversion, hypertension. She used to be seen in [place] where she used to live for A-fib had a cardioversion in the past about 3 years ago and has not had issues since. She was taken off blood thinners at the time and was not on any antiarrhythmic medication. She was recently seen in [facility] 02/08/2023 with symptoms of A-fib -she had felt SOB and felt like heart was racing and was concerned she was in A-fib. No cardioversion was attempted due to not being on blood thinners. [place] started her on Cardizem and Eliquis , [...] Stop Amiodarone. Fahad García MD Cardiac Electrophysiology [facility] 04-17-2023 Note Patient: Mona Yanez Procedure Information Date/Time: 04/17/23 1340 Procedure: Cardioversion - BECCA with DCCV Location: [facility] / [facility] (Cath) Providers: Fahad García MD Clinical information reviewed: Allergies Meds OB Status Physical Exam Airway Mallampati: II TM distance: >3 FB Neck ROM: full Cardiovascular Dental Pulmonary Abdominal Anesthesia Plan ASA 2 CSE Anesthetic plan and risks discussed with patient. Use of blood products discussed with patient who. Additional Equipment Requests [facility] 03-05-2023 Note [place] Electrophysiology Consult Note Reason for visit: 2 [...] hypertension. She used to be seen in [place] where she used to live for A-fib had a cardioversion in the past about 3 years ago and has not had issues since. She was taken off blood thinners at the time and was not on any antiarrhythmic medication. She was recently seen in [place] [facility] 02/08/2023 with symptoms of A-fib -she had felt SOB and felt like heart was racing and was concerned she was in A-fib. No cardioversion was attempted due to not being on blood thinners. [place] started her on Cardizem and Eliquis , [...] alcohol abuse, Hematologic/Lymphat (more content not included)... [facility] 05-30-2023 Note Patient here for 2 w belkofski follow up. She had echo this morning [...] All other systems reviewed and are negative. [facility] 02-22-2023 Note - in the past she [...] leg swelling - BMP in a week [facility] 02-22-2023 Note - [id number] 5 for age, gender, hypertension, PE, could be 6 if you consider potential HFpEF - continue Eliquis 5 mg twice daily - continue Cardizem 30 mg daily, she just took it about an hour before arrival, will have patient monitor heart rate at home and let us know if she sustains rates above 100-110 as well as monitoring blood pressure [facility] 02-22-2023 Note - her blood pressure was controlled prior to having A-fib again - she takes lisinopril 40 mg daily, she was on nifedipine and that was discontinued per Soumya and she was started on Cardizem 300 mg, hydralazine 50 mg twice daily - I will have her monitor blood pressure and heart rate at home just took her meds at about 930 [facility] 02-22-2023 Note - she had completed her 7-day loading dose of 10 mg Eliquis twice daily, continue Eliquis 5 mg twice daily - we will order TTE as this was not done with her admission at [place] to evaluate for right heart strain along with any cardiomyopathy or valvular abnormalities - per patient PCP office deferred PE management to cardiology - she is stable as of this time with pulse ox reading greater than 95%, pending echo results may need consultation with vascular service otherwise will maintain Eliquis as she will be on this for life [facility] 02-22-2023 Note [place] Electrophysiology Consult Note Reason for visit: new patient, A-fib HPI: Mona Yanez is a 67 y.o. year old with past medical history of A-fib with history of cardioversion, hypertension. She used to be seen in [place] where she used to live for A-fib had a cardioversion in the past about 3 years ago and has not had issues since. She was taken off blood thinners at the time and was not on any antiarrhythmic medication. She was recently seen in [place] [facility] 02/08/2023 with symptoms of A-fib -she had felt SOB and felt like heart was racing and was concerned she was in A-fib. No cardioversion was attempted due to not being on blood thinners. [place] started her on Cardizem and Eliquis , [...] rales, no rho (more content not included)... [facility] 02-22-2023 Note Patient is here toda y [...] All other systems reviewed and are negative. [facility] Summary Purpose Family History No Family History Records FoundNo Family History Records Found Advance Directives No Advanced Directives Records FoundNo Advanced Directives Records Found Additional Source Comments INFORMATION SOURCE (unrecogn ized section and content) DATE CREATED AUTHOR 03/17/2023 [facility] monae DATE CREATED AUTHOR AUTHOR'S NADEENIZ BROCK 12/18/2023 [facility] FOR RECORDS PERTAINING TO PATIENTS WHO ARE [...] BE BASED ON THE PRIMARY CLINICAL RECORDS. [employer] [facility]. provides no warranty or guarantee of the accuracy or completeness of information in this document.
[2024-02-18 07:10] LABS: Basophils Absolute Auto 0.1 10^3/uL (0.0-0.1); Basophils Percent Auto 1.1 % (0.2-2.0); Eosinophils Absolute Auto 0.1 10^3/uL (0.0-0.7); Eosinophils Percent Auto 3.1 % (0.9-7.0); Hematocrit 42.9 % (36.0-48.0); Hemoglobin 13.5 g/dL (12.0-16.0); Immature Granulocytes Abs Auto 0.01 10^3/uL (0.00-0.03); Immature Granulocytes Pct Auto 0.2 % (0.0-0.5); Lymphocytes Absolute Auto 1.4 10^3/uL (1.2-3.8); Lymphocytes Percent Auto 30.4 % (20.5-60.0); Mean Corpuscular HGB Conc 31.5 g/dL (29.9-35.2); Mean Corpuscular Hemoglobin 28.9 pg (26.7-34.0); Mean Corpuscular Volume 91.9 fL (81.0-99.0); Mean Platelet Volume 9.5 fL (9.5-13.5); Monocytes Absolute Auto 0.3 10^3/uL (0.3-0.8); Monocytes Percent Auto 6.8 % (1.7-12.0); Neutrophils Absolute Auto 2.7 10^3/uL (1.4-6.5); Neutrophils Percent Auto 58.4 % (43.0-75.0); Platelet Count 178 10^3/uL (150-450); Red Blood Count 4.67 10^6/uL (4.20-5.40); Red Cell Distribution Width 12.6 % (11.0-15.0); White Blood Count 4.5 10^3/uL (4.0-11.0)
[2024-02-18 07:33] LABS: Alanine Aminotransferase 23 U/L (14-59); Albumin Level 3.3 g/dL (3.4-5.0); Alkaline Phosphatase 122 U/L (46-116); Anion Gap 12.1; Aspartate Amino Transferase 14 U/L (15-37); BUN Creatinine Ratio 19.8; Bilirubin Total 0.5 mg/dL (0.2-1.0); Calcium 9.8 mg/dL (8.5-10.1); Carbon Dioxide 28.7 mmol/L (21.0-32.0); Chloride 107 mmol/L (98-107); Chol HDL Ratio 3.3; Cholesterol 158 mg/dL (<=200); Estimated GFR (African America >60 (>=60); Estimated GFR (Non-African Ame >60 (>=60); Free T3 2.88 pg/mL (2.18-3.98); Globulin 3.3 g/dL; Glucose 101 mg/dL (74-106); HDL Cholesterol 48 mg/dL (40-60); LDL Cholesterol Calculated 95.2 mg/dL; Potassium 3.8 mmol/L (3.5-5.1); Sodium 144 mmol/L (136-145); Thyroid Stimulating Hormone 1.866 uIU/mL (0.358-3.740); Total Protein 6.6 g/dL (6.4-8.2); Triglycerides 74 mg/dL (<=150); VLDL CHOLESTEROL 14.8 mg/dL
[2024-02-18 07:59] LABS: Estimated Average Glucose 108 mg/dL; Glycohemoglobin A1C 5.4 % (4.5-6.2)
[2024-02-19 12:11] LABS: Insulin 11.9 uIU/mL (2.6-24.9)
== END 2024-02-18 06:40 | disposition home or self-care (01) ==
PROVIDERS: PCP Nurse Practitioner Family; Visit Provider Nurse Practitioner Family
DX: E78.5 Hyperlipidemia, unspecified (principal); I50.9 Heart failure, unspecified; R53.83 Other fatigue; R73.09 Other abnormal glucose; Z79.899 Other long term (current) drug therapy; Z12.11 Encounter for screening for malignant neoplasm of colon; E56.9 Vitamin deficiency, unspecified; I11.0 Hypertensive heart disease with heart failure
CPT/HCPCS: 36415; 80053; 80061; 82306; 83036; 83525; 83540; 84436; 84443; 84481; 85025

== ENCOUNTER 2025-02-12 13:40 | Outpatient (OUT) | payer MEDICARE, OTHER, SELFPAY ==
[2025-02-12 14:42] LABS: Chloride 103 mmol/L (98-107); Potassium 4.1 mmol/L (3.5-5.1); Sodium 137 mmol/L (136-145)
[2025-02-12 14:43] LABS: Alanine Aminotransferase 31 U/L (14-59); Aspartate Amino Transferase 17 U/L (15-37); BUN Creatinine Ratio 20.8; Calcium 10.1 mg/dL (8.5-10.1); Carbon Dioxide 27.1 mmol/L (21.0-32.0); Chol HDL Ratio 3.3; Cholesterol 160 mg/dL (<=200); Estimated GFR (African America >60 (>=60 mL/min/1.73m^2); Estimated GFR (Non-African Ame 52 (>=60 mL/min/1.73m^2); Glucose 102 mg/dL (74-106); HDL Cholesterol 48 mg/dL (40-60); LDL Cholesterol Calculated 86.8 mg/dL; Magnesium 1.7 mg/dL (1.8-2.4); Thyroid Stimulating Hormone 1.782 uIU/mL (0.358-3.740); Triglycerides 126 mg/dL (<=150); VLDL CHOLESTEROL 25.2 mg/dL
== END 2025-02-12 13:41 | disposition home or self-care (01) ==
LOC: LAB 13:42
PROVIDERS: PCP Nurse Practitioner Family; Visit Provider Internal Medicine Cardiovascular Disease
DX: E78.2 Mixed hyperlipidemia (principal); I48.0 Paroxysmal atrial fibrillation
CPT/HCPCS: 36415; 80048; 80061; 83735; 84443; 84450; 84460